=== PATIENT | female | born 1985 | race Caucasian/White ===

== ENCOUNTER 2016-05-13 11:03 | Emergency (ER) | payer MEDICAID ==
[2005-05-23 10:34] VITALS: BP 111/66
[~2016-05-13] VITALS: Ht 167.6 cm; Wt 104.5 kg
[~2016-05-13 11:03] MED LIST: ABIL400; ABIL400 IM; ABILIFY30 MG PO; ADDERALL10 MG PO; ADIPEX-P37.5 MG PO; ALDACTONE50 MG PO; AMBIEN 10MG10 MG PO; AMBIEN 5MG TABLE5 MG PO; AMITRIPTYLINE H10 M1 PO; AMOXICILLIN 50500 MG PO; ANTIVERT 12.512.5 MG PO; ANTIVERT 25MG25 MG PO; ATARAX 25MG25 MG/TAB PO; ATIVAN 1MG T1 MG/TAB PO; B-12 500 MCG SL; BELSOMRA20 MG PO; BIRTH CONTROL PILLS; BUPROPRION; BUSPAR DIVIDOSE15 MG PO; CARAFATE 1GM1 G PO; CELEXA40 MG PO; CEPHALEXIN250 M1 PO; CLEOCIN HC150 MG/CAP PO; CLEOCIN HCL300 MG PO; COLACE 100100 MG/CAP PO; CYMBALTA 60MG60 MG PO; DEPAKOTE500 MG PO; DICLEGIS PO; DILAUDID 2MG TAB2 MG PO; DITROPAN 5MG TAB5 MG PO; DOXYCYCLINE 10100 MG PO; DULERA1 AR1 IH; DULERA1 ARO IH; FELDENE20 MG PO; FLAGYL500 MG PO; FLEXERIL 1010 MG/TAB PO; FLEXERIL5 MG PO; FLONASE NASAL S16 GM NS; KLONOPIN 1MG1 MG PO; LAMICTAL 100MG100 MG PO; LASIX 20MG TABL20 MG PO; LASIX 40MG TABL40 MG PO; LATUDA120 MG PO; LATUDA40 MG PO; LEVAQUIN 5500 MG/TA1 PO; LYRICA 100MG C100 M1 PO; LYRICA225 MG PO; MACROBID 1100 MG/CAP PO; MAG-OX 400400 MG/TAB PO; MINIPRESS 1M1 MG/CAP PO; MINIPRESS 5M5 MG/CAP PO; MIRTAZAPINE7.5 MG PO; MOTRIN 600600 MG/TAB PO; MOTRIN 800800 MG/TAB PO; NAPROSYN500 MG PO; NO HOME MEDICATIONS; NORCO 325 MG-51 TAB PO; NORCO 325 MG-7.1 TAB PO; OSCAL 500 TAB500 MG PO; PENICILLIN V P500 MG PO; PEPCID 20MG TAB20 MG PO; PERCOCET 325 MG1 TA2 PO; PERIACTIN 4MG TA4 MG PO; PHENERGAN 25 TA25 MG; PHENERGAN 25 TA25 MG PO; PHENERGAN25 MG RC; PRENATAL; PRENATAL1 TA1 PO; PRIL40 PO; PRINIVIL5 MG PO; PROTONIX20 MG PO; PROZAC40 MG PO; REGLAN 5MG T5 MG/TAB PO; SEROQUEL 1100 MG/TAB PO; SEROQUEL XR200 MG PO; SEROQUEL400 MG PO; SEROQUEL50 MG PO; SINGULAIR 110 MG/TAB PO; TEGRETOL 1100 MG/TAB PO; TOPAMAX 100MG100 M1 PO; TOPAMAX50 MG PO; TOPICAINE 55% TP; TRANSDERM-0.5 MG/21 TD; TUSS PO; ULTRAM 50MG TAB50 MG PO; VENTOLIN0.09 MG IH; VIIBRYD20 MG PO; VIIBRYD40 MG PO; VITAMIN D31000 I1 PO; XANAX 0.5MG0.5 MG PO; XANAX 1MG1 MG PO; XANAX0.5 MG PO; ZITHROMAX Z PA250 MG PO; ZOFRAN 4MG T4 MG/TAB PO; ZOFRAN ODT4 MG PO; ZOFRAN4 M1 PO; ZOFRAN8 MG PO; ZOLOFT 100MG100 MG PO; ZOLOFT100 MG PO; ZOVIRAX400 MG PO; ZYPREXA 5MG5 MG PO; ZYPREXA ZYD10 MG/TAB PO
[2016-05-13 11:25] VITALS: BP 106/68; TEMP 100.2
[2016-05-13 12:14] LABS: INFLUENZA B NEGATIVE
[2016-05-13 12:43] VITALS: PULSE 88
[2016-07-11] MEDS ORDERED: B-12 500 MCG SL (09:53)
[2016-07-11] MEDS ORDERED: VITAMIN D 1001000 IU PO (09:55)
[2016-07-11] MEDS ORDERED: CALCIUM 600MG+D1 TAB PO (09:55)
== END 2016-05-13 13:03 | disposition home or self-care (01) ==
LOC: COL.ER 11:03
PROVIDERS: Physician Assistant
DX: J11.1 Influenza due to unidentified influenza virus with other respiratory manifestations (principal)

== ENCOUNTER → 2016-07-11 | Outpatient (CLI) | payer MEDICAID ==
[~2016-07-11] VITALS: Ht 167.6 cm; Wt 97.3 kg
[~2016-07-11] MED LIST changes: +CALCIUM 600MG+D1 TAB PO; +CARAFATE S1 GM/10 ML PO; +HYCET SOLN PO; +INDERAL 10MG10 MG PO; +NEXIUM 40MG40 MG PO; +PEPCID40 MG PO; +VITAMIN D 1001000 IU PO
[2016-07-11 09:56] VITALS: BP 105/54; PULSE 65
== END ==
LOC: LIGHT 05-16 10:34
DX: Z98.84 Bariatric surgery status (principal); Z68.34 Body mass index [BMI] 34.0-34.9, adult

== ENCOUNTER 2016-08-07 10:58 | Emergency (ER) | payer MEDICAID ==
[2005-05-23 10:34] VITALS: BP 111/66
[~2016-08-07] VITALS: Ht 167.6 cm; Wt 97.3 kg
[~2016-08-07 10:58] MED LIST changes: -CARAFATE S1 GM/10 ML PO; -HYCET SOLN PO; -INDERAL 10MG10 MG PO; -NEXIUM 40MG40 MG PO; -PEPCID40 MG PO
[2016-08-07 11:00] VITALS: TEMP 98.8
[2016-08-07 11:56] LABS: BASO % 0.3 % (0.0-2.0); EOS % 0.5 % (0-4.0); GRAN # 3.3 (1.4-6.5); GRAN % 51.4 % (42.2-75.2); HEMATOCRIT 38.3 % (37.0-47.0); HEMOGLOBIN 12.2 g/dl (12.5-16.0); LYMPH # 2.7 (1.2-3.4); MEAN CELL VOLUME 81 fl (80.0-100.0); MEAN CORPUSCULAR HEMOGLOBIN 26 pg (27.0-31.0); MEAN CORPUSCULAR HGB CONC 32 g/dl (33.0-37.0); MEAN PLATELET VOLUME 9.9 fl (7.4-10.4); MONO # 0.4 (0.1-0.6); MONO % 5.6 % (1.7-9.3); PLATELET COUNT 372 K/mm3 (130-400); RED BLOOD COUNT 4.76 M/mm3 (4.10-5.30); REDCELL DISTRIBUTION WIDTH-CV 16.4 % (11.5-14.5); WHITE BLOOD COUNT 6.4 K/mm3 (4.8-10.8)
[2016-08-07 11:57] LABS: ADJUSTED CALCIUM 9.3 mg/dL (8.4-10.2); ALBUMIN 4.5 gm/dL (3.5-5.0); BILIRUBIN,TOTAL 1.2 mg/dL (0.0-1.0); CALCIUM 9.7 mg/dL (8.4-10.2); CREATININE, serum 0.66 mg/dL (0.52-1.25); POTASSIUM 3.7 mmol/L (3.4-5.0)
[2016-08-07 12:24] LABS: PH 6 (5-8); SQUAMOUS EPITHELIAL 0-2 /hpf; URINE APPEARANCE Clear; URINE BACTERIA None Seen /hpf; URINE BILIRUBIN Negative (NEGATIVE); URINE BLOOD Negative (NEGATIVE); URINE COLOR Yellow; URINE GLUCOSE Negative (NEGATIVE); URINE KETONE Negative (NEGATIVE); URINE RBC 0-2 /hpf; URINE UROBILINOGEN Negative (NEGATIVE); URINE WBC 0-2 /hpf
[2016-08-07 12:40] VITALS: BP 111/77
[2016-08-07] MEDS ORDERED: HYCET SOLN PO (13:52)
[2016-08-07 14:12] VITALS: PULSE 67
== END 2016-08-07 14:13 | disposition home or self-care (01) ==
LOC: COL.ER 10:58
PROVIDERS: Nurse Practitioner
DX: R10.11 Right upper quadrant pain (principal); R10.31 Right lower quadrant pain; F31.9 Bipolar disorder, unspecified; E66.9 Obesity, unspecified; Z68.34 Body mass index [BMI] 34.0-34.9, adult; Z98.84 Bariatric surgery status
CPT/HCPCS: J2405; J3010; J7030; Q9967

== ENCOUNTER 2016-08-16 11:31 | Emergency (ER) | payer MEDICAID ==
[2005-05-23 10:34] VITALS: BP 111/66
[~2016-08-16] VITALS: Ht 167.6 cm; Wt 95.5 kg
[~2016-08-16 11:31] MED LIST changes: +HYCET SOLN PO
[2016-08-16 11:38] VITALS: BP 113/67; PULSE 71; TEMP 98
[2016-08-16 14:13] LABS: BASO % 0.3 % (0.0-2.0); EOS % 0.7 % (0-4.0); GRAN # 2.3 (1.4-6.5); GRAN % 38.4 % (42.2-75.2); LYMPH # 3.3 (1.2-3.4); LYMPH % 54.2 % (20.0-51.0); MEAN CELL VOLUME 81 fl (80.0-100.0); MEAN CORPUSCULAR HGB CONC 32 g/dl (33.0-37.0); MEAN PLATELET VOLUME 10.1 fl (7.4-10.4); MONO # 0.4 (0.1-0.6); MONO % 6.2 % (1.7-9.3); PLATELET COUNT 305 K/mm3 (130-400); RED BLOOD COUNT 4.21 M/mm3 (4.10-5.30); REDCELL DISTRIBUTION WIDTH-CV 16.9 % (11.5-14.5)
[2016-08-16 14:14] LABS: HEMATOCRIT 34.2 % (37.0-47.0); HEMOGLOBIN 10.9 g/dl (12.5-16.0); MEAN CORPUSCULAR HEMOGLOBIN 26 pg (27.0-31.0)
[2016-08-16 14:16] LABS: PH 7 (5-8); URINE APPEARANCE Clear; URINE BACTERIA None Seen /hpf; URINE BILIRUBIN Negative (NEGATIVE); URINE BLOOD Negative (NEGATIVE); URINE COLOR Yellow; URINE GLUCOSE Negative (NEGATIVE); URINE KETONE Negative (NEGATIVE); URINE RBC 0-2 /hpf; URINE UROBILINOGEN Negative (NEGATIVE); URINE WBC 0-2 /hpf
[2016-08-16 14:28] LABS: ADJUSTED CALCIUM 9.1 mg/dL (8.4-10.2); ALANINE AMINOTRANSFERASE 24 U/L (9-52); ALBUMIN 3.7 gm/dL (3.5-5.0); ALKALINE PHOSPHATASE 52 U/L (50-136); ANION GAP 10 mmol/L (7-16); BLOOD UREA NITROGEN 8 mg/dL (7-17); CALCIUM 8.9 mg/dL (8.4-10.2); CARBON DIOXIDE 27 mmol/L (22-30); CHLORIDE 103 mmol/L (98-107); CREATININE, serum 0.59 mg/dL (0.52-1.25); GLUCOSE 79 mg/dL (74-106); POTASSIUM 3.6 mmol/L (3.4-5.0); SODIUM 140 mmol/L (137-145); TOTAL PROTEIN 6.6 gm/dL (6.4-8.2)
[2016-08-16 14:33] LABS: C-REACTIVE PROTEIN < 0.5 mg/dL (0.0-0.9)
== END 2016-08-16 15:40 | disposition home or self-care (01) ==
LOC: COL.ER 11:31
PROVIDERS: Physician Assistant
DX: R53.81 Other malaise (principal); R11.2 Nausea with vomiting, unspecified; Z98.84 Bariatric surgery status; F32.9 Major depressive disorder, single episode, unspecified; F41.9 Anxiety disorder, unspecified; F43.10 Post-traumatic stress disorder, unspecified
CPT/HCPCS: J2405; J2550; J7030

== ENCOUNTER 2016-09-01 20:44 | Emergency (ER) | payer MEDICAID ==
[2005-05-23 10:34] VITALS: BP 111/66
[~2016-09-01] VITALS: Ht 167.6 cm; Wt 95.5 kg
[2016-09-01 20:54] VITALS: BP 121/69; PULSE 104; TEMP 98.4
== END 2016-09-01 23:52 | disposition home or self-care (01) ==
LOC: COL.ER 20:44
DX: R21 Rash and other nonspecific skin eruption (principal); L73.9 Follicular disorder, unspecified

== ENCOUNTER 2016-09-15 11:13 | Emergency (ER) | payer MEDICAID ==
[2005-05-23 10:34] VITALS: BP 111/66
[~2016-09-15] VITALS: Ht 167.6 cm; Wt 100.0 kg
[2016-09-15 11:55] LABS: PH 8 (5-8); SQUAMOUS EPITHELIAL 0-2 /hpf; URINE APPEARANCE Clear; URINE BACTERIA None Seen /hpf; URINE BILIRUBIN Negative (NEGATIVE); URINE BLOOD Negative (NEGATIVE); URINE COLOR Yellow; URINE GLUCOSE Negative (NEGATIVE); URINE KETONE Negative (NEGATIVE); URINE RBC 0-2 /hpf; URINE UROBILINOGEN Negative (NEGATIVE); URINE WBC 0-2 /hpf
[2016-09-15 11:55] LABS: BASO % 0.4 % (0.0-2.0); EOS % 0.6 % (0-4.0); GRAN # 2.5 (1.4-6.5); GRAN % 45.6 % (42.2-75.2); LYMPH # 2.5 (1.2-3.4); LYMPH % 46.2 % (20.0-51.0); MEAN CELL VOLUME 81 fl (80.0-100.0); MEAN CORPUSCULAR HGB CONC 32 g/dl (33.0-37.0); MEAN PLATELET VOLUME 9.7 fl (7.4-10.4); MONO # 0.4 (0.1-0.6); PLATELET COUNT 310 K/mm3 (130-400); RED BLOOD COUNT 4.35 M/mm3 (4.10-5.30); REDCELL DISTRIBUTION WIDTH-CV 16.9 % (11.5-14.5); WHITE BLOOD COUNT 5.4 K/mm3 (4.8-10.8)
[2016-09-15 11:59] LABS: HEMATOCRIT 35.2 % (37.0-47.0); HEMOGLOBIN 11.2 g/dl (12.5-16.0); MEAN CORPUSCULAR HEMOGLOBIN 26 pg (27.0-31.0)
[2016-09-15 12:09] LABS: ADJUSTED CALCIUM 8.9 mg/dL (8.4-10.2); CALCIUM 8.9 mg/dL (8.4-10.2); CREATININE, serum 0.61 mg/dL (0.52-1.25); POTASSIUM 3.6 mmol/L (3.4-5.0)
[2016-09-15] MEDS ORDERED: ULTRAM 50MG TAB50 MG PO (13:29)
[2016-09-15 13:44] VITALS: BP 114/66; PULSE 84; TEMP 98.3
== END 2016-09-15 13:45 | disposition home or self-care (01) ==
LOC: COL.ER 11:13
PROVIDERS: Family Medicine
DX: K52.9 Noninfective gastroenteritis and colitis, unspecified (principal); R10.31 Right lower quadrant pain; Z98.84 Bariatric surgery status
CPT/HCPCS: J2270; J2405; J7030; Q9967

== ENCOUNTER 2016-10-08 10:41 | Emergency (ER) | payer MEDICAID ==
[2005-05-23 10:34] VITALS: BP 111/66
[~2016-10-08] VITALS: Ht 167.6 cm; Wt 97.7 kg
[2016-10-08 10:43] VITALS: TEMP 98.8
[2016-10-08 11:18] LABS: BASO % 0.4 % (0.0-2.0); EOS % 0.6 % (0-4.0); GRAN # 2.2 (1.4-6.5); GRAN % 44.9 % (42.2-75.2); HEMATOCRIT 37.4 % (37.0-47.0); LYMPH # 2.3 (1.2-3.4); LYMPH % 46.5 % (20.0-51.0); MEAN CELL VOLUME 80 fl (80.0-100.0); MEAN CORPUSCULAR HEMOGLOBIN 26 pg (27.0-31.0); MEAN CORPUSCULAR HGB CONC 32 g/dl (33.0-37.0); MEAN PLATELET VOLUME 10.1 fl (7.4-10.4); MONO # 0.4 (0.1-0.6); MONO % 7.4 % (1.7-9.3); PLATELET COUNT 312 K/mm3 (130-400); RED BLOOD COUNT 4.66 M/mm3 (4.10-5.30); REDCELL DISTRIBUTION WIDTH-CV 16.5 % (11.5-14.5); WHITE BLOOD COUNT 4.8 K/mm3 (4.8-10.8)
[2016-10-08 11:31] LABS: PH 8 (5-8); SQUAMOUS EPITHELIAL 0-2 /hpf; URINE APPEARANCE Clear; URINE BACTERIA Rare /hpf; URINE BILIRUBIN Negative (NEGATIVE); URINE BLOOD Negative (NEGATIVE); URINE COLOR Yellow; URINE GLUCOSE Negative (NEGATIVE); URINE KETONE Negative (NEGATIVE); URINE RBC 0-2 /hpf; URINE UROBILINOGEN Negative (NEGATIVE); URINE WBC 0-2 /hpf
[2016-10-08 11:34] LABS: ADJUSTED CALCIUM 8.7 mg/dL (8.4-10.2); ALANINE AMINOTRANSFERASE 12 U/L (9-52); ALBUMIN 4.2 gm/dL (3.5-5.0); ALKALINE PHOSPHATASE 55 U/L (50-136); ANION GAP 9 mmol/L (7-16); BILIRUBIN,TOTAL 1.1 mg/dL (0.0-1.0); BLOOD UREA NITROGEN 10 mg/dL (7-17); CALCIUM 8.9 mg/dL (8.4-10.2); CARBON DIOXIDE 24 mmol/L (22-30); CHLORIDE 102 mmol/L (98-107); CREATININE, serum 0.63 mg/dL (0.52-1.25); GLUCOSE 81 mg/dL (74-106); POTASSIUM 4.2 mmol/L (3.4-5.0); SODIUM 135 mmol/L (137-145); TOTAL PROTEIN 7.4 gm/dL (6.4-8.2)
[2016-10-08 11:36] LABS: C-REACTIVE PROTEIN < 0.5 mg/dL (0.0-0.9)
[2016-10-08 12:10] VITALS: BP 117/60; PULSE 83
== END 2016-10-08 12:10 | disposition home or self-care (01) ==
LOC: COL.ER 10:41
PROVIDERS: Emergency Medicine
DX: R53.1 Weakness (principal); B34.9 Viral infection, unspecified; R11.0 Nausea; R52 Pain, unspecified; R10.84 Generalized abdominal pain; F32.9 Major depressive disorder, single episode, unspecified; Z98.84 Bariatric surgery status
CPT/HCPCS: J1885; J2405; J7030

== ENCOUNTER 2016-11-15 10:02 | Emergency (ER) | payer MEDICAID ==
[2005-05-23 10:34] VITALS: BP 111/66
[~2016-11-15] VITALS: Ht 167.6 cm; Wt 95.5 kg
[2016-11-15 10:06] VITALS: BP 123/63; TEMP 98.5
[2016-11-15 10:49] LABS: PH 5 (5-8); SQUAMOUS EPITHELIAL 0-2 /hpf; URINE APPEARANCE Clear; URINE BACTERIA Rare /hpf; URINE BILIRUBIN Negative (NEGATIVE); URINE BLOOD Negative (NEGATIVE); URINE COLOR Yellow; URINE GLUCOSE Negative (NEGATIVE); URINE KETONE Negative (NEGATIVE); URINE RBC 0-2 /hpf; URINE UROBILINOGEN Negative (NEGATIVE); URINE WBC 0-2 /hpf
[2016-11-15] MEDS ORDERED: PHENERGAN 25 TA25 MG PO (11:51)
[2016-11-15 12:31] VITALS: PULSE 76
== END 2016-11-15 12:36 | disposition home or self-care (01) ==
LOC: COL.ER 10:02
PROVIDERS: Physician Assistant
DX: R10.9 Unspecified abdominal pain (principal); F32.9 Major depressive disorder, single episode, unspecified; Z87.442 Personal history of urinary calculi
CPT/HCPCS: J1885; J2405; J7030

== ENCOUNTER 2016-11-23 12:41 | Emergency (ER) | payer MEDICAID ==
[2005-05-23 10:34] VITALS: BP 111/66
[~2016-11-23] VITALS: Ht 167.6 cm; Wt 95.5 kg
[2016-11-23 12:43] VITALS: TEMP 97.8
[2016-11-23] MEDS ORDERED: PEPCID40 MG PO (12:58)
[2016-11-23 13:15] LABS: BASO % 0.4 % (0.0-2.0); EOS % 0.5 % (0-4.0); GRAN # 2.6 (1.4-6.5); GRAN % 45.9 % (42.2-75.2); LYMPH # 2.6 (1.2-3.4); LYMPH % 45.4 % (20.0-51.0); MEAN CELL VOLUME 82 fl (80.0-100.0); MEAN CORPUSCULAR HGB CONC 32 g/dl (33.0-37.0); MEAN PLATELET VOLUME 9.6 fl (7.4-10.4); MONO # 0.4 (0.1-0.6); MONO % 7.6 % (1.7-9.3); PLATELET COUNT 314 K/mm3 (130-400); RED BLOOD COUNT 4.48 M/mm3 (4.10-5.30); REDCELL DISTRIBUTION WIDTH-CV 17.6 % (11.5-14.5); WHITE BLOOD COUNT 5.7 K/mm3 (4.8-10.8)
[2016-11-23 13:21] LABS: ADJUSTED CALCIUM 8.6 mg/dL (8.4-10.2); ALBUMIN 4.1 gm/dL (3.5-5.0); BILIRUBIN,TOTAL 0.9 mg/dL (0.0-1.0); CALCIUM 8.7 mg/dL (8.4-10.2); CREATININE, serum 0.68 mg/dL (0.52-1.25); HEMATOCRIT 36.5 % (37.0-47.0); HEMOGLOBIN 11.8 g/dl (12.5-16.0); MEAN CORPUSCULAR HEMOGLOBIN 26 pg (27.0-31.0); POTASSIUM 3.7 mmol/L (3.4-5.0); TOTAL PROTEIN 7.4 gm/dL (6.4-8.2)
[2016-11-23] MEDS ORDERED: PEPCID 20MG TAB20 MG PO (15:20)
[2016-11-23 15:38] VITALS: BP 96/65; PULSE 60
== END 2016-11-23 15:39 | disposition home or self-care (01) ==
LOC: COL.ER 12:41
PROVIDERS: Emergency Medicine
DX: K29.70 Gastritis, unspecified, without bleeding (principal); Z87.11 Personal history of peptic ulcer disease; Z98.84 Bariatric surgery status; G89.29 Other chronic pain
CPT/HCPCS: J2405; J2765; J3010; J7030

== ENCOUNTER 2016-11-27 16:43 | Emergency (ER) | payer MEDICAID ==
[2005-05-23 10:34] VITALS: BP 111/66
[~2016-11-27] VITALS: Ht 167.6 cm; Wt 97.7 kg
[~2016-11-27 16:43] MED LIST changes: +PEPCID40 MG PO
[2016-11-27 16:49] VITALS: BP 117/72; TEMP 98.1
[2016-11-27 17:52] LABS: BASO % 0.3 % (0.0-2.0); EOS % 0.3 % (0-4.0); GRAN # 2.9 (1.4-6.5); GRAN % 42.5 % (42.2-75.2); LYMPH # 3.4 (1.2-3.4); LYMPH % 50.2 % (20.0-51.0); MEAN CELL VOLUME 82 fl (80.0-100.0); MEAN CORPUSCULAR HGB CONC 32 g/dl (33.0-37.0); MONO # 0.5 (0.1-0.6); MONO % 6.6 % (1.7-9.3); PLATELET COUNT 310 K/mm3 (130-400); RED BLOOD COUNT 4.46 M/mm3 (4.10-5.30); REDCELL DISTRIBUTION WIDTH-CV 17.3 % (11.5-14.5); WHITE BLOOD COUNT 6.8 K/mm3 (4.8-10.8)
[2016-11-27 17:54] LABS: HEMATOCRIT 36.7 % (37.0-47.0); HEMOGLOBIN 11.7 g/dl (12.5-16.0); MEAN CORPUSCULAR HEMOGLOBIN 26 pg (27.0-31.0)
[2016-11-27 18:11] LABS: ADJUSTED CALCIUM 8.7 mg/dL (8.4-10.2); ALANINE AMINOTRANSFERASE 19 U/L (9-52); ALBUMIN 4.3 gm/dL (3.5-5.0); ALKALINE PHOSPHATASE 56 U/L (50-136); ANION GAP 8 mmol/L (7-16); BILIRUBIN,TOTAL 0.9 mg/dL (0.0-1.0); BLOOD UREA NITROGEN 11 mg/dL (7-17); CALCIUM 8.9 mg/dL (8.4-10.2); CARBON DIOXIDE 27 mmol/L (22-30); CHLORIDE 101 mmol/L (98-107); CREATININE, serum 0.66 mg/dL (0.52-1.25); GLUCOSE 77 mg/dL (74-106); LIPASE 99 U/L (23-300); POTASSIUM 3.6 mmol/L (3.4-5.0); SODIUM 136 mmol/L (137-145); TOTAL PROTEIN 7.5 gm/dL (6.4-8.2)
[2016-11-27 18:13] LABS: C-REACTIVE PROTEIN < 0.5 mg/dL (0.0-0.9)
[2016-11-27 18:14] LABS: PH 6 (5-8); URINE APPEARANCE Clear; URINE BACTERIA None Seen /hpf; URINE BILIRUBIN Negative (NEGATIVE); URINE BLOOD Negative (NEGATIVE); URINE COLOR Yellow; URINE GLUCOSE Negative (NEGATIVE); URINE KETONE Negative (NEGATIVE); URINE RBC 0-2 /hpf; URINE UROBILINOGEN Negative (NEGATIVE); URINE WBC 0-2 /hpf
[2016-11-27] MEDS ORDERED: NEXIUM 40MG40 MG PO (19:38)
[2016-11-27] MEDS ORDERED: PHENERGAN 25 TA25 MG PO (19:38)
[2016-11-27] MEDS ORDERED: ZOFRAN ODT4 MG PO (19:38)
[2016-11-27] MEDS ORDERED: CARAFATE S1 GM/10 ML PO (19:38)
[2016-11-27 19:49] VITALS: PULSE 84
[2016-11-28] MEDS ORDERED: PHENERGAN25 MG RC (10:23)
[2016-11-28] MEDS ORDERED: INDERAL 10MG10 MG PO (10:26)
[2016-11-28] MEDS ORDERED: NORCO 325 MG-51 TAB PO (10:27)
== END 2016-11-27 19:51 | disposition home or self-care (01) ==
LOC: COL.ER 16:43
PROVIDERS: Emergency Medicine
DX: R10.13 Epigastric pain (principal); R10.12 Left upper quadrant pain; R10.11 Right upper quadrant pain; R11.2 Nausea with vomiting, unspecified; R19.7 Diarrhea, unspecified; Z98.84 Bariatric surgery status; F41.9 Anxiety disorder, unspecified; F32.9 Major depressive disorder, single episode, unspecified; F43.10 Post-traumatic stress disorder, unspecified; Z87.11 Personal history of peptic ulcer disease; M79.7 Fibromyalgia
CPT/HCPCS: J1170; J2405; J2550; J7030

== ENCOUNTER 2016-11-28 09:43 | Day surgery (SDC) | payer MEDICAID ==
[2005-05-23 10:34] VITALS: BP 111/66
[~2016-11-28] VITALS: Ht 167.6 cm; Wt 101.1 kg
[~2016-11-28 09:43] MED LIST changes: +CARAFATE S1 GM/10 ML PO; +NEXIUM 40MG40 MG PO
[2016-11-28 10:10] VITALS: BP 111/62; PULSE 76; TEMP 98
[2016-11-28] MEDS ORDERED: PHENERGAN25 MG RC (10:23)
[2016-11-28] MEDS ORDERED: INDERAL 10MG10 MG PO (10:26)
[2016-11-28] MEDS ORDERED: NORCO 325 MG-51 TAB PO (10:27)
[2016-11-28 11:32] VITALS: BP 107/75; PULSE 65; TEMP 98.8
[2016-11-28 11:45] VITALS: BP 100/64; PULSE 74
[2016-11-28 12:00] VITALS: BP 108/53; PULSE 68
[2016-11-28 17:56] VITALS: BP 100/71; PULSE 77
== END 2016-11-28 12:40 | disposition home or self-care (01) ==
LOC: SDCO 09:43
DX: K21.0 Gastro-esophageal reflux disease with esophagitis (principal); K31.89 Other diseases of stomach and duodenum; K30 Functional dyspepsia; D64.9 Anemia, unspecified; K92.1 Melena; K25.9 Gastric ulcer, unspecified as acute or chronic, without hemorrhage or perforation; E66.9 Obesity, unspecified; Z87.11 Personal history of peptic ulcer disease
CPT/HCPCS: OP; J2250; J3010; J7030

== ENCOUNTER → 2016-12-17 | Outpatient (CLI) | payer MEDICAID ==
[~2016-12-17] MED LIST changes: +INDERAL 10MG10 MG PO
== END ==
LOC: COL.RAD 11:36
DX: R10.10 Upper abdominal pain, unspecified (principal); R19.7 Diarrhea, unspecified; Z98.84 Bariatric surgery status
CPT/HCPCS: A9537

== ENCOUNTER 2017-01-21 14:22 | Emergency (ER) | payer MEDICAID ==
[2005-05-23 10:34] VITALS: BP 111/66
[~2017-01-21] VITALS: Ht 167.6 cm; Wt 97.7 kg
[2017-01-21 14:29] VITALS: BP 107/67; TEMP 98.3
[2017-01-21 15:22] VITALS: PULSE 75
== END 2017-01-21 15:22 | disposition home or self-care (01) ==
LOC: COL.ER 14:22
DX: S01.511A Laceration without foreign body of lip, initial encounter (principal); F32.9 Major depressive disorder, single episode, unspecified; F41.9 Anxiety disorder, unspecified; Z98.890 Other specified postprocedural states; W20.8XXA Other cause of strike by thrown, projected or falling object, initial encounter; Y92.009 Unspecified place in unspecified non-institutional (private) residence as the place of occurrence of the external cause

== ENCOUNTER 2017-03-10 09:19 | Emergency (ER) | payer MEDICAID ==
[2005-05-23 10:34] VITALS: BP 111/66
[~2017-03-10] VITALS: Ht 167.6 cm; Wt 96.4 kg
[2017-03-10 09:32] VITALS: BP 121/75; TEMP 98.4
[2017-03-10] MEDS ORDERED: WELLBUTRIN XL300 M1 PO (09:35)
[2017-03-10 11:03] VITALS: PULSE 88
== END 2017-03-10 11:04 | disposition home or self-care (01) ==
LOC: COL.ER 09:19
DX: J06.9 Acute upper respiratory infection, unspecified (principal); J45.909 Unspecified asthma, uncomplicated; F32.9 Major depressive disorder, single episode, unspecified; F43.10 Post-traumatic stress disorder, unspecified

== ENCOUNTER → 2017-05-29 | Outpatient (CLI) | payer MEDICAID ==
[~2017-05-29] VITALS: Ht 167.6 cm; Wt 93.4 kg
[~2017-05-29] MED LIST changes: +B-121000 MCG PO; +MULTIPLE VITAMI1 CAP PO; +PHENTERMINE15 MG PO; +WELLBUTRIN XL300 M1 PO; +ZOFRAN ODT8 MG PO
[2017-05-29 14:59] VITALS: BP 102/60; PULSE 72
== END ==
LOC: LIGHT
DX: Z98.84 Bariatric surgery status (principal); Z68.33 Body mass index [BMI] 33.0-33.9, adult; Z71.3 Dietary counseling and surveillance
CPT/HCPCS: G0463

== ENCOUNTER 2017-06-05 18:22 | Emergency (ER) | payer MEDICAID ==
[2005-05-23 10:34] VITALS: BP 111/66
[~2017-06-05] VITALS: Ht 167.6 cm; Wt 93.6 kg
[2017-06-05 18:24] VITALS: TEMP 98.1
[2017-06-05 19:32] LABS: COLLECTION METHOD CLEAN CATCH
[2017-06-05 19:37] LABS: BASO % 0.2 % (0.0-2.0); EOS % 0.6 % (0-4.0); GRAN # 2.7 (1.4-6.5); HEMATOCRIT 37.4 % (37.0-47.0); HEMOGLOBIN 12.2 g/dl (12.5-16.0); LYMPH # 3.1 (1.2-3.4); LYMPH % 49.4 % (20.0-51.0); MEAN CELL VOLUME 86 fl (80.0-100.0); MEAN CORPUSCULAR HEMOGLOBIN 28 pg (27.0-31.0); MEAN CORPUSCULAR HGB CONC 33 g/dl (33.0-37.0); MONO # 0.4 (0.1-0.6); MONO % 6.6 % (1.7-9.3); PLATELET COUNT 297 K/mm3 (130-400); RED BLOOD COUNT 4.33 M/mm3 (4.10-5.30); REDCELL DISTRIBUTION WIDTH-CV 15.7 % (11.5-14.5)
[2017-06-05 19:47] LABS: ALANINE AMINOTRANSFERASE 23 U/L (9-52); ALKALINE PHOSPHATASE 58 U/L (50-136); ANION GAP 9 mmol/L (7-16); AST,SGOT 18 U/L (15-37); BILIRUBIN,TOTAL 0.5 mg/dL (0.0-1.0); BLOOD UREA NITROGEN 8 mg/dL (7-17); C-REACTIVE PROTEIN < 0.5 mg/dL (0.0-0.9); CALCIUM 8.7 mg/dL (8.4-10.2); CARBON DIOXIDE 25 mmol/L (22-30); CHLORIDE 105 mmol/L (98-107); GLUCOSE 85 mg/dL (74-106); LIPASE 143 U/L (23-300); POTASSIUM 3.6 mmol/L (3.4-5.0); SODIUM 138 mmol/L (137-145); TOTAL PROTEIN 7.3 gm/dL (6.4-8.2)
[2017-06-05 20:01] LABS: MUCOUS Present /lpf; PH 7 (5-8); SQUAMOUS EPITHELIAL 0-2 /hpf; URINE APPEARANCE Hazy; URINE BACTERIA Rare /hpf; URINE BILIRUBIN Negative (NEGATIVE); URINE BLOOD Negative (NEGATIVE); URINE COLOR Yellow; URINE GLUCOSE Negative (NEGATIVE); URINE KETONE Negative (NEGATIVE); URINE LEUKOCYTE ESTERASE Negative (NEGATIVE); URINE NITRATE Negative (NEGATIVE); URINE PROTEIN(semi-quant) Negative (NEGATIVE); URINE RBC 0-2 /hpf; URINE UROBILINOGEN >=4.0 mg/dL (NEGATIVE)
[2017-06-05 22:08] VITALS: BP 128/83; PULSE 86
== END 2017-06-05 22:08 | disposition home or self-care (01) ==
LOC: COL.ER 18:22
PROVIDERS: Emergency Medicine
DX: R10.31 Right lower quadrant pain (principal); Z87.442 Personal history of urinary calculi; Z98.890 Other specified postprocedural states
CPT/HCPCS: J1170; J2405; J7030; Q9967

== ENCOUNTER 2017-06-19 10:40 | Emergency (ER) | payer MEDICAID ==
[2005-05-23 10:34] VITALS: BP 111/66
[~2017-06-19] VITALS: Ht 167.6 cm; Wt 93.6 kg
[2017-06-19 10:43] VITALS: BP 115/64; TEMP 98.1
[2017-06-19 11:41] LABS: BASO % 0.4 % (0.0-2.0); EOS % 0.6 % (0-4.0); GRAN # 2.1 (1.4-6.5); GRAN % 40.3 % (42.2-75.2); LYMPH # 2.6 (1.2-3.4); LYMPH % 50.6 % (20.0-51.0); MEAN CELL VOLUME 86 fl (80.0-100.0); MEAN CORPUSCULAR HGB CONC 33 g/dl (33.0-37.0); MEAN PLATELET VOLUME 10.1 fl (7.4-10.4); MONO # 0.4 (0.1-0.6); MONO % 7.9 % (1.7-9.3); PLATELET COUNT 276 K/mm3 (130-400); RED BLOOD COUNT 4.17 M/mm3 (4.10-5.30); REDCELL DISTRIBUTION WIDTH-CV 15.2 % (11.5-14.5)
[2017-06-19 11:43] LABS: HEMOGLOBIN 11.7 g/dl (12.5-16.0); MEAN CORPUSCULAR HEMOGLOBIN 28 pg (27.0-31.0)
[2017-06-19 11:46] LABS: CALCIUM 8.9 mg/dL (8.4-10.2); CREATININE, serum 0.68 mg/dL (0.52-1.25); POTASSIUM 4.2 mmol/L (3.4-5.0)
[2017-06-19] MEDS ORDERED: ANTIVERT 25MG25 MG PO (12:07)
[2017-06-19] MEDS ORDERED: ZOFRAN ODT4 MG PO (13:09)
[2017-06-19 13:27] VITALS: PULSE 91
== END 2017-06-19 13:27 | disposition home or self-care (01) ==
LOC: COL.ER 10:40
PROVIDERS: Physician Assistant
DX: R42 Dizziness and giddiness (principal)

== ENCOUNTER 2017-06-21 12:17 | Emergency (ER) | payer MEDICAID ==
[2005-05-23 10:34] VITALS: BP 111/66
[~2017-06-21] VITALS: Ht 167.6 cm; Wt 93.6 kg
[2017-06-21 12:18] VITALS: TEMP 98.1
[2017-06-21 13:30] VITALS: BP 122/72; PULSE 80
== END 2017-06-21 13:30 | disposition home or self-care (01) ==
LOC: COL.ER 12:17
DX: R42 Dizziness and giddiness (principal); F32.9 Major depressive disorder, single episode, unspecified; Z98.51 Tubal ligation status; Z98.890 Other specified postprocedural states

== ENCOUNTER 2017-07-24 00:26 | Emergency (ER) | payer MEDICAID ==
[2005-05-23 10:34] VITALS: BP 111/66
[~2017-07-24] VITALS: Ht 167.6 cm; Wt 90.9 kg
[2017-07-24 00:29] VITALS: TEMP 98.2
[2017-07-24 01:00] LABS: BASO % 0.3 % (0.0-2.0); EOS % 0.4 % (0-4.0); GRAN # 4.4 (1.4-6.5); GRAN % 48.2 % (42.2-75.2); HEMATOCRIT 37.9 % (37.0-47.0); HEMOGLOBIN 12.1 g/dl (12.5-16.0); LYMPH % 43.9 % (20.0-51.0); MEAN CELL VOLUME 86 fl (80.0-100.0); MEAN CORPUSCULAR HEMOGLOBIN 27 pg (27.0-31.0); MEAN CORPUSCULAR HGB CONC 32 g/dl (33.0-37.0); MEAN PLATELET VOLUME 10.5 fl (7.4-10.4); MONO # 0.6 (0.1-0.6); PLATELET COUNT 309 K/mm3 (130-400); RED BLOOD COUNT 4.41 M/mm3 (4.10-5.30); REDCELL DISTRIBUTION WIDTH-CV 14.3 % (11.5-14.5)
[2017-07-24 01:09] LABS: ALANINE AMINOTRANSFERASE 26 U/L (9-52); ALBUMIN 4.2 gm/dL (3.5-5.0); ALKALINE PHOSPHATASE 59 U/L (50-136); ANION GAP 10 mmol/L (7-16); AST,SGOT 22 U/L (15-37); BILIRUBIN,TOTAL 0.5 mg/dL (0.0-1.0); BLOOD UREA NITROGEN 12 mg/dL (7-17); CALCIUM 9.1 mg/dL (8.4-10.2); CARBON DIOXIDE 26 mmol/L (22-30); CHLORIDE 102 mmol/L (98-107); CREATININE, serum 0.78 mg/dL (0.52-1.25); GLUCOSE 92 mg/dL (74-106); LIPASE 167 U/L (23-300); POTASSIUM 3.7 mmol/L (3.4-5.0); SODIUM 138 mmol/L (137-145)
[2017-07-24 01:15] LABS: COLLECTION METHOD CLEAN CATCH
[2017-07-24 01:19] LABS: C-REACTIVE PROTEIN < 0.5 mg/dL (0.0-0.9)
[2017-07-24 01:21] LABS: MUCOUS Present /lpf; PH 6 (5-8); SQUAMOUS EPITHELIAL 0-2 /hpf; URINE APPEARANCE Clear; URINE BACTERIA Rare /hpf; URINE BILIRUBIN Negative (NEGATIVE); URINE BLOOD Negative (NEGATIVE); URINE COLOR Yellow; URINE GLUCOSE Negative (NEGATIVE); URINE KETONE Negative (NEGATIVE); URINE LEUKOCYTE ESTERASE 2+ (NEGATIVE); URINE NITRATE Negative (NEGATIVE); URINE PROTEIN(semi-quant) Negative (NEGATIVE); URINE RBC 0-2 /hpf; URINE UROBILINOGEN >=4.0 mg/dL (NEGATIVE)
[2017-07-24] MEDS ORDERED: BENTYL 20MG20 MG/TAB PO (01:21)
[2017-07-24] MEDS ORDERED: INDERAL 20MG20 MG PO (01:21)
[2017-07-24] MEDS ORDERED: PHENERGAN 25 TA25 MG PO ×2 (01:22→02:49)
[2017-07-24] MEDS ORDERED: CEFTIN500 MG PO (02:49)
[2017-07-24 03:17] VITALS: BP 107/68; PULSE 81
== END 2017-07-24 03:25 | disposition home or self-care (01) ==
LOC: COL.ER 00:26
PROVIDERS: Emergency Medicine
DX: N39.0 Urinary tract infection, site not specified (principal); Z87.442 Personal history of urinary calculi; Z98.84 Bariatric surgery status; Z87.11 Personal history of peptic ulcer disease
CPT/HCPCS: J0696; J1170; J2405; J2550; J7030; Q9967

== ENCOUNTER 2017-08-19 11:22 | Emergency (ER) | payer MEDICAID ==
[2005-05-23 10:34] VITALS: BP 111/66
[~2017-08-19] VITALS: Ht 167.6 cm; Wt 95.5 kg
[~2017-08-19 11:22] MED LIST changes: +BENTYL 20MG20 MG/TAB PO; +CEFTIN500 MG PO; +INDERAL 20MG20 MG PO
[2017-08-19 11:34] VITALS: BP 114/60; TEMP 97.8
[2017-08-19] MEDS ORDERED: KLONOPIN 0.5MG0.5 MG PO (12:50)
[2017-08-19 13:53] LABS: BASO % 0.2 % (0.0-2.0); EOS # 0.1 (0.0-0.7); EOS % 0.7 % (0-4.0); GRAN # 3.8 (1.4-6.5); GRAN % 46.8 % (42.2-75.2); HEMOGLOBIN 12.5 g/dl (12.5-16.0); LYMPH # 3.7 (1.2-3.4); LYMPH % 45.7 % (20.0-51.0); MEAN CELL VOLUME 84 fl (80.0-100.0); MEAN CORPUSCULAR HEMOGLOBIN 28 pg (27.0-31.0); MEAN CORPUSCULAR HGB CONC 33 g/dl (33.0-37.0); MEAN PLATELET VOLUME 10.7 fl (7.4-10.4); MONO # 0.5 (0.1-0.6); MONO % 6.5 % (1.7-9.3); PLATELET COUNT 258 K/mm3 (130-400); RED BLOOD COUNT 4.51 M/mm3 (4.10-5.30); REDCELL DISTRIBUTION WIDTH-CV 14.6 % (11.5-14.5)
[2017-08-19 14:06] LABS: ALANINE AMINOTRANSFERASE 22 U/L (9-52); ALBUMIN 3.6 gm/dL (3.5-5.0); ALKALINE PHOSPHATASE 61 U/L (50-136); ANION GAP 10 mmol/L (7-16); AST,SGOT 19 U/L (15-37); BILIRUBIN,TOTAL 0.6 mg/dL (0.0-1.0); BLOOD UREA NITROGEN 9 mg/dL (7-17); CALCIUM 8.7 mg/dL (8.4-10.2); CARBON DIOXIDE 26 mmol/L (22-30); CHLORIDE 102 mmol/L (98-107); CREATININE, serum 0.63 mg/dL (0.52-1.25); GLUCOSE 76 mg/dL (74-106); POTASSIUM 3.8 mmol/L (3.4-5.0); SODIUM 138 mmol/L (137-145); TOTAL PROTEIN 7.3 gm/dL (6.4-8.2)
[2017-08-19 14:09] LABS: C-REACTIVE PROTEIN < 0.5 mg/dL (0.0-0.9)
[2017-08-19] MEDS ORDERED: ZOFRAN ODT4 MG PO (14:31)
[2017-08-19 14:35] VITALS: PULSE 80
== END 2017-08-19 14:36 | disposition other institution (70) ==
LOC: COL.ER 11:22
PROVIDERS: Physician Assistant
DX: R11.10 Vomiting, unspecified (principal); R10.9 Unspecified abdominal pain; J45.909 Unspecified asthma, uncomplicated; Z87.11 Personal history of peptic ulcer disease; Z88.1 Allergy status to other antibiotic agents; Z98.84 Bariatric surgery status

== ENCOUNTER 2017-08-28 10:39 | Emergency (ER) | payer MEDICAID ==
[2005-05-23 10:34] VITALS: BP 111/66
[~2017-08-28] VITALS: Ht 167.6 cm; Wt 95.5 kg
[~2017-08-28 10:39] MED LIST changes: +KLONOPIN 0.5MG0.5 MG PO
[2017-08-28 10:44] VITALS: BP 101/60; TEMP 97.3
[2017-08-28 12:00] VITALS: PULSE 70
== END 2017-08-28 12:01 | disposition home or self-care (01) ==
LOC: COL.ER 10:39
DX: Z77.098 Contact with and (suspected) exposure to other hazardous, chiefly nonmedicinal, chemicals (principal)

== ENCOUNTER 2017-10-08 01:02 | Emergency (ER) | payer MEDICAID ==
[2005-05-23 10:34] VITALS: BP 111/66
[~2017-10-08] VITALS: Ht 167.6 cm; Wt 93.2 kg
[2017-10-08 01:09] VITALS: BP 132/70; TEMP 99
[2017-10-08] MEDS ORDERED: SERZONE 10100 MG/TAB PO (01:13)
[2017-10-08 02:25] LABS: COLLECTION METHOD CLEAN CATCH
[2017-10-08 02:33] LABS: MUCOUS Present /lpf; PH 7 (5-8); URINE APPEARANCE Hazy; URINE BACTERIA None Seen /hpf; URINE BILIRUBIN Negative (NEGATIVE); URINE BLOOD Negative (NEGATIVE); URINE COLOR Yellow; URINE GLUCOSE Negative (NEGATIVE); URINE KETONE Negative (NEGATIVE); URINE LEUKOCYTE ESTERASE Negative (NEGATIVE); URINE NITRATE Negative (NEGATIVE); URINE PROTEIN(semi-quant) Negative (NEGATIVE); URINE RBC None Seen /hpf; URINE UROBILINOGEN >=4.0 mg/dL (NEGATIVE)
[2017-10-08 02:36] LABS: BASO % 0.3 % (0.0-2.0); EOS % 0.6 % (0-4.0); GRAN # 3.3 (1.4-6.5); GRAN % 45.9 % (42.2-75.2); HEMOGLOBIN 11.5 g/dl (12.5-16.0); LYMPH # 3.2 (1.2-3.4); LYMPH % 44.9 % (20.0-51.0); MEAN CELL VOLUME 85 fl (80.0-100.0); MEAN CORPUSCULAR HEMOGLOBIN 28 pg (27.0-31.0); MEAN CORPUSCULAR HGB CONC 33 g/dl (33.0-37.0); MEAN PLATELET VOLUME 9.8 fl (7.4-10.4); MONO # 0.6 (0.1-0.6); MONO % 8.2 % (1.7-9.3); PLATELET COUNT 219 K/mm3 (130-400); RED BLOOD COUNT 4.12 M/mm3 (4.10-5.30); REDCELL DISTRIBUTION WIDTH-CV 15.8 % (11.5-14.5)
[2017-10-08 02:41] LABS: HEMATOCRIT 34.9 % (37.0-47.0)
[2017-10-08 02:51] LABS: ALANINE AMINOTRANSFERASE 26 U/L (9-52); ALBUMIN 3.4 gm/dL (3.5-5.0); ALKALINE PHOSPHATASE 52 U/L (50-136); ANION GAP 9 mmol/L (7-16); AST,SGOT 18 U/L (15-37); BILIRUBIN,TOTAL 0.6 mg/dL (0.0-1.0); BLOOD UREA NITROGEN 11 mg/dL (7-17); C-REACTIVE PROTEIN < 0.5 mg/dL (0.0-0.9); CALCIUM 8.3 mg/dL (8.4-10.2); CARBON DIOXIDE 26 mmol/L (22-30); CHLORIDE 104 mmol/L (98-107); CREATININE, serum 0.61 mg/dL (0.52-1.25); GLUCOSE 88 mg/dL (74-106); LIPASE 145 U/L (23-300); POTASSIUM 3.6 mmol/L (3.4-5.0); SODIUM 139 mmol/L (137-145); TOTAL PROTEIN 6.7 gm/dL (6.4-8.2)
[2017-10-08] MEDS ORDERED: ZOFRAN 4MG T4 MG/TAB PO (03:04)
[2017-10-08 03:31] VITALS: PULSE 85
== END 2017-10-08 03:30 | disposition home or self-care (01) ==
LOC: COL.ER 01:02
PROVIDERS: Emergency Medicine
DX: R19.7 Diarrhea, unspecified (principal); R11.2 Nausea with vomiting, unspecified; Z98.51 Tubal ligation status
CPT/HCPCS: J2405; J7030

== ENCOUNTER 2017-11-05 11:24 | Emergency (ER) | payer MEDICAID ==
[2005-05-23 10:34] VITALS: BP 111/66
[~2017-11-05] VITALS: Ht 167.6 cm; Wt 93.2 kg
[~2017-11-05 11:24] MED LIST changes: +SERZONE 10100 MG/TAB PO
[2017-11-05 11:27] VITALS: TEMP 98.9
[2017-11-05] MEDS ORDERED: PRILOSEC 20MG20 MG PO (11:51)
[2017-11-05] MEDS ORDERED: CARAFATE 1GM1 G PO (11:52)
[2017-11-05 12:18] LABS: BASO % 0.3 % (0.0-2.0); EOS # 0.1 (0.0-0.7); EOS % 0.8 % (0-4.0); GRAN # 2.4 (1.4-6.5); GRAN % 40.2 % (42.2-75.2); HEMATOCRIT 40.2 % (37.0-47.0); HEMOGLOBIN 13.4 g/dl (12.5-16.0); LYMPH # 3.1 (1.2-3.4); LYMPH % 51.5 % (20.0-51.0); MEAN CELL VOLUME 85 fl (80.0-100.0); MEAN CORPUSCULAR HEMOGLOBIN 28 pg (27.0-31.0); MEAN CORPUSCULAR HGB CONC 33 g/dl (33.0-37.0); MEAN PLATELET VOLUME 10.8 fl (7.4-10.4); MONO # 0.4 (0.1-0.6); PLATELET COUNT 284 K/mm3 (130-400); RED BLOOD COUNT 4.76 M/mm3 (4.10-5.30); REDCELL DISTRIBUTION WIDTH-CV 15.6 % (11.5-14.5)
[2017-11-05 12:30] LABS: ALBUMIN 4.1 gm/dL (3.5-5.0); BILIRUBIN,TOTAL 0.9 mg/dL (0.0-1.0); CALCIUM 9.3 mg/dL (8.4-10.2); CREATININE, serum 0.6 mg/dL (0.52-1.25); POTASSIUM 3.9 mmol/L (3.4-5.0); TOTAL PROTEIN 7.5 gm/dL (6.4-8.2)
[2017-11-05 12:37] LABS: COLLECTION METHOD CLEAN CATCH
[2017-11-05 12:43] LABS: PH 8 (5-8); SQUAMOUS EPITHELIAL 0-2 /hpf; URINE APPEARANCE Clear; URINE BACTERIA None Seen /hpf; URINE BILIRUBIN Negative (NEGATIVE); URINE BLOOD Negative (NEGATIVE); URINE COLOR Yellow; URINE GLUCOSE Negative (NEGATIVE); URINE KETONE Negative (NEGATIVE); URINE LEUKOCYTE ESTERASE Negative (NEGATIVE); URINE NITRATE Negative (NEGATIVE); URINE PROTEIN(semi-quant) Negative (NEGATIVE); URINE RBC 0-2 /hpf; URINE UROBILINOGEN Negative (NEGATIVE)
[2017-11-05 13:48] VITALS: BP 104/63; PULSE 63
== END 2017-11-05 13:49 | disposition home or self-care (01) ==
LOC: COL.ER 11:24
PROVIDERS: Nurse Practitioner Primary Care
DX: R11.2 Nausea with vomiting, unspecified (principal); Z87.442 Personal history of urinary calculi; Z98.890 Other specified postprocedural states
CPT/HCPCS: J1885; J2405; J7030

== ENCOUNTER 2017-11-07 11:37 | Day surgery (SDC) | payer MEDICAID ==
[2005-05-23 10:34] VITALS: BP 111/66
[2017-11-07] VITALS (9 sets, daily range): BP systolic 101–141; BP diastolic 54–71; PULSE 83–102; TEMP 97.7–98.7
[~2017-11-07] VITALS: Ht 167.6 cm; Wt 93.0 kg
[~2017-11-07 11:37] MED LIST changes: +PRILOSEC 20MG20 MG PO
[2017-11-07] MEDS ORDERED: MOTRIN 600600 MG/TAB PO (16:46)
[2017-11-07] MEDS ORDERED: COLACE 100100 MG/CAP PO (16:46)
[2017-11-07] MEDS ORDERED: PERCOCET 325 MG1 TA2 PO (16:46)
== END 2017-11-07 21:35 | disposition home or self-care (01) ==
LOC: SDCO 11:37 → MEDICAL 17:53 → SDCO 21:35
DX: K80.10 Calculus of gallbladder with chronic cholecystitis without obstruction (principal); J45.909 Unspecified asthma, uncomplicated; F41.9 Anxiety disorder, unspecified; F32.9 Major depressive disorder, single episode, unspecified; K21.9 Gastro-esophageal reflux disease without esophagitis; R51 Headache; Z79.899 Other long term (current) drug therapy
CPT/HCPCS: OP; J1170; J2405; J2704; J3010; J7120; Q9967

== ENCOUNTER 2017-11-09 09:00 | Emergency (ER) | payer MEDICAID ==
[2005-05-23 10:34] VITALS: BP 111/66
[~2017-11-09] VITALS: Ht 167.6 cm; Wt 94.5 kg
[2017-11-09 09:05] VITALS: TEMP 98.8
[2017-11-09 09:39] LABS: BASO % 0.3 % (0.0-2.0); EOS % 0.6 % (0-4.0); GRAN # 2.5 (1.4-6.5); GRAN % 35.7 % (42.2-75.2); HEMOGLOBIN 10.9 g/dl (12.5-16.0); LYMPH % 57.7 % (20.0-51.0); MEAN CELL VOLUME 86 fl (80.0-100.0); MEAN CORPUSCULAR HEMOGLOBIN 28 pg (27.0-31.0); MEAN CORPUSCULAR HGB CONC 33 g/dl (33.0-37.0); MEAN PLATELET VOLUME 10.3 fl (7.4-10.4); MONO # 0.4 (0.1-0.6); MONO % 5.7 % (1.7-9.3); PLATELET COUNT 251 K/mm3 (130-400); RED BLOOD COUNT 3.86 M/mm3 (4.10-5.30); REDCELL DISTRIBUTION WIDTH-CV 15.5 % (11.5-14.5)
[2017-11-09 09:40] LABS: HEMATOCRIT 33.1 % (37.0-47.0)
[2017-11-09 09:52] LABS: ALBUMIN 3.5 gm/dL (3.5-5.0); BILIRUBIN,TOTAL 0.8 mg/dL (0.0-1.0); C-REACTIVE PROTEIN 0.9 mg/dL (0.0-0.9); CALCIUM 8.6 mg/dL (8.4-10.2); CREATININE, serum 0.66 mg/dL (0.52-1.25); POTASSIUM 3.7 mmol/L (3.4-5.0); TOTAL PROTEIN 6.3 gm/dL (6.4-8.2)
[2017-11-09] MEDS ORDERED: NORCO 325 MG-51 TAB PO (10:50)
[2017-11-09 11:51] VITALS: BP 106/72; PULSE 79
[2017-11-09] MEDS ORDERED: KLONOPIN 0.5MG0.5 MG PO (19:14)
[2017-11-09] MEDS ORDERED: INDERAL 20MG20 MG PO (19:15)
== END 2017-11-09 12:10 | disposition home or self-care (01) ==
LOC: COL.ER 09:00
PROVIDERS: Emergency Medicine
DX: G89.18 Other acute postprocedural pain (principal); R10.11 Right upper quadrant pain; J45.909 Unspecified asthma, uncomplicated; F32.9 Major depressive disorder, single episode, unspecified; F41.9 Anxiety disorder, unspecified; F60.3 Borderline personality disorder; Z98.890 Other specified postprocedural states; Z90.49 Acquired absence of other specified parts of digestive tract
CPT/HCPCS: J1170; J1200; J2405; J3010; J7030; Q9967

== ENCOUNTER 2017-11-09 18:07 | Observation (INO) | payer MEDICAID ==
[~2017-11-09] VITALS: Ht 167.6 cm; Wt 98.4 kg
[2017-11-09] MEDS ORDERED: KLONOPIN 0.5MG0.5 MG PO (19:14)
[2017-11-09] MEDS ORDERED: INDERAL 20MG20 MG PO (19:15)
[2017-11-09 19:20] LABS: INR 0.9 (0.8-3.0); PROTHROMBIN TIME 10.5 SECONDS (9.7-12.8)
[2017-11-09 22:53] VITALS: BP 105/71; PULSE 58; TEMP 97.8
[2017-11-10 04:00] VITALS: BP 110/74; PULSE 64; TEMP 97.7
[2017-11-10 08:19] VITALS: BP 109/64; PULSE 66; TEMP 97.7
[2017-11-10 11:35] VITALS: BP 114/78; PULSE 63; TEMP 98
[2017-11-10 17:18] VITALS: BP 109/61; PULSE 51; TEMP 98
[2017-11-10 19:41] VITALS: BP 105/63; PULSE 76; TEMP 98.9
[2017-11-10 23:25] VITALS: BP 113/59; PULSE 67; TEMP 98.8
[2017-11-11 03:45] VITALS: BP 100/72; PULSE 69; TEMP 98.9
[2017-11-11 08:02] VITALS: BP 116/66; PULSE 70; TEMP 98.3
[2017-11-11] MEDS ORDERED: NORCO 325 MG-7.1 TAB PO (10:02)
[2017-11-11] MEDS ORDERED: NEURONTIN100 MG/CAP PO (10:02)
[2017-11-11] MEDS ORDERED: ZOFRAN ODT4 MG PO (10:03)
[2017-11-11] MEDS ORDERED: ZANTAC 150MG T150 MG PO (10:58)
[2017-11-11 11:46] VITALS: BP 127/64; PULSE 99; TEMP 97.9
== END 2017-11-11 16:07 | disposition home or self-care (01) ==
LOC: COL.ER 18:07 → SURG 18:46
PROVIDERS: Emergency Medicine
DX: R10.9 Unspecified abdominal pain (principal); R11.2 Nausea with vomiting, unspecified; Z90.49 Acquired absence of other specified parts of digestive tract; Z98.84 Bariatric surgery status
CPT/HCPCS: G0378; J1170; J1650; J2405; J7030; Q9967

== ENCOUNTER → 2017-11-24 | Outpatient (CLI) | payer MEDICAID ==
[~2017-11-24] MED LIST changes: +NEURONTIN100 MG/CAP PO; +ZANTAC 150MG T150 MG PO
== END ==
LOC: COL.RAD 13:37
DX: R07.1 Chest pain on breathing (principal)

== ENCOUNTER 2017-12-06 16:04 | Emergency (ER) | payer MEDICAID ==
[~2017-12-06] VITALS: Ht 167.6 cm; Wt 91.8 kg
[2017-12-06 16:17] VITALS: TEMP 99.2
[2017-12-06 17:19] LABS: BASO % 0.3 % (0.0-2.0); EOS # 0.1 (0.0-0.7); EOS % 0.8 % (0-4.0); GRAN # 2.7 (1.4-6.5); LYMPH % 48.2 % (20.0-51.0); MEAN CELL VOLUME 87 fl (80.0-100.0); MEAN CORPUSCULAR HEMOGLOBIN 29 pg (27.0-31.0); MEAN CORPUSCULAR HGB CONC 33 g/dl (33.0-37.0); MEAN PLATELET VOLUME 10.2 fl (7.4-10.4); MONO # 0.5 (0.1-0.6); MONO % 7.5 % (1.7-9.3); PLATELET COUNT 267 K/mm3 (130-400); RED BLOOD COUNT 4.21 M/mm3 (4.10-5.30); REDCELL DISTRIBUTION WIDTH-CV 14.9 % (11.5-14.5)
[2017-12-06 17:20] LABS: HEMATOCRIT 36.4 % (37.0-47.0)
[2017-12-06 17:25] LABS: ALBUMIN 3.9 gm/dL (3.5-5.0); BILIRUBIN,TOTAL 0.6 mg/dL (0.0-1.0); CALCIUM 8.4 mg/dL (8.4-10.2); CREATININE, serum 0.6 mg/dL (0.52-1.25); POTASSIUM 3.7 mmol/L (3.4-5.0); TOTAL PROTEIN 7.1 gm/dL (6.4-8.2)
[2017-12-06 17:27] LABS: TRICYCLIC ANTIDEPRESS URINE NEGATIVE
[2017-12-06 17:55] LABS: TSH w REFLEX 0.206 uIU/mL (0.465-4.680)
[2017-12-06] MEDS ORDERED: INDERAL 10MG10 MG PO (18:20)
[2017-12-06] MEDS ORDERED: TENORMIN 2525 MG/TAB PO (18:55)
[2017-12-06 19:03] VITALS: BP 122/78; PULSE 80
== END 2017-12-06 19:03 | disposition home or self-care (01) ==
LOC: COL.ER 16:04
PROVIDERS: Nurse Practitioner Primary Care
DX: E03.9 Hypothyroidism, unspecified (principal); F32.9 Major depressive disorder, single episode, unspecified; F41.9 Anxiety disorder, unspecified; J45.909 Unspecified asthma, uncomplicated; F12.10 Cannabis abuse, uncomplicated; Z86.79 Personal history of other diseases of the circulatory system

== ENCOUNTER → 2017-12-10 | Outpatient (CLI) | payer MEDICAID ==
[~2017-12-10] MED LIST changes: +TENORMIN 2525 MG/TAB PO
[2017-12-10 17:06] LABS: TSH w REFLEX 0.563 uIU/mL (0.465-4.680)
== END ==
LOC: COL.LAB 11:09
PROVIDERS: Family Medicine
DX: R94.6 Abnormal results of thyroid function studies (principal)

== ENCOUNTER → 2017-12-11 | Outpatient (CLI) | payer MEDICAID ==
[2017-12-11 12:07] LABS: HEMATOCRIT 38.8 % (37.0-47.0); HEMOGLOBIN 12.7 g/dl (12.5-16.0); MEAN CELL VOLUME 86 fl (80.0-100.0); MEAN CORPUSCULAR HEMOGLOBIN 28 pg (27.0-31.0); MEAN CORPUSCULAR HGB CONC 33 g/dl (33.0-37.0); MEAN PLATELET VOLUME 10.3 fl (7.4-10.4); PLATELET COUNT 286 K/mm3 (130-400); RED BLOOD COUNT 4.52 M/mm3 (4.10-5.30); REDCELL DISTRIBUTION WIDTH-CV 14.8 % (11.5-14.5)
[2017-12-11 12:20] LABS: ALANINE AMINOTRANSFERASE 25 U/L (9-52); ALBUMIN 3.9 gm/dL (3.5-5.0); ALKALINE PHOSPHATASE 56 U/L (50-136); AMYLASE 74 U/L (30-110); ANION GAP 10 mmol/L (7-16); AST,SGOT 20 U/L (15-37); BILIRUBIN,TOTAL 0.9 mg/dL (0.0-1.0); BLOOD UREA NITROGEN 11 mg/dL (7-17); CALCIUM 8.9 mg/dL (8.4-10.2); CARBON DIOXIDE 27 mmol/L (22-30); CHLORIDE 102 mmol/L (98-107); GLUCOSE 78 mg/dL (74-106); LIPASE 98 U/L (23-300); POTASSIUM 3.6 mmol/L (3.4-5.0); SODIUM 138 mmol/L (137-145); TOTAL PROTEIN 7.3 gm/dL (6.4-8.2)
[2017-12-11 12:24] LABS: C-REACTIVE PROTEIN 0.5 mg/dL (0.0-0.9)
[2017-12-11 13:15] LABS: AMMONIA < 9 umol/L (11-35)
[2017-12-11 16:50] LABS: TRICYCLIC ANTIDEPRESS URINE NEGATIVE
== END ==
LOC: COL.LAB 11:10
PROVIDERS: Family Medicine
DX: F44.89 Other dissociative and conversion disorders (principal); R10.9 Unspecified abdominal pain

== ENCOUNTER → 2017-12-11 | Outpatient (CLI) | payer MEDICAID | LOC: COL.LAB 10:55 | DX: Z02.83 Encounter for blood-alcohol and blood-drug test (principal); R41.82 Altered mental status, unspecified ==

== ENCOUNTER → 2018-01-27 | Outpatient (CLI) | payer MEDICAID ==
[~2018-01-27] MED LIST changes: +MELATONIN5 M1 SL; +TYLENOL 500MG500 MG PO; +WELLBUTRIN XL150 MG PO
[2018-01-27 13:15] LABS: HEMATOCRIT 41.4 % (37.0-47.0); HEMOGLOBIN 13.7 g/dl (12.5-16.0); MEAN CELL VOLUME 85 fl (80.0-100.0); MEAN CORPUSCULAR HEMOGLOBIN 28 pg (27.0-31.0); MEAN CORPUSCULAR HGB CONC 33 g/dl (33.0-37.0); MEAN PLATELET VOLUME 10.7 fl (7.4-10.4); PLATELET COUNT 249 K/mm3 (130-400); RED BLOOD COUNT 4.87 M/mm3 (4.10-5.30); REDCELL DISTRIBUTION WIDTH-CV 14.2 % (11.5-14.5)
[2018-01-27 13:23] LABS: ALBUMIN 4.1 gm/dL (3.5-5.0); BILIRUBIN,TOTAL 0.6 mg/dL (0.0-1.0); CALCIUM 9.1 mg/dL (8.4-10.2); CREATININE, serum 0.67 mg/dL (0.52-1.25); MAGNESIUM 1.5 mg/dL (1.6-2.3); PHOSPHOROUS 3.6 mg/dL (2.5-4.5); POTASSIUM 4.1 mmol/L (3.4-5.0); TOTAL PROTEIN 7.7 gm/dL (6.4-8.2)
[2018-01-27 13:54] LABS: THYROID STIMULATING HORMONE 0.747 uIU/mL (0.465-4.680)
[2018-01-27 14:19] LABS: BAND 7 % (0-10); EOSINOPHIL 1 % (0-4); LYMPHOCYTE 54 % (20.0-51.0); NEUTROPHILS 33 % (42.0-75.2)
[2018-01-27 14:20] LABS: ANISOCYTOSIS 1+; PLATELET ESTIMATE NORMAL (NORMAL)
== END ==
LOC: COL.LAB 12:36
DX: D50.0 Iron deficiency anemia secondary to blood loss (chronic) (principal); K59.00 Constipation, unspecified; R19.7 Diarrhea, unspecified

== ENCOUNTER → 2018-01-28 | Day surgery (SDC) | payer MEDICAID ==
[2005-05-23 10:34] VITALS: BP 111/66
[~2018-01-28] VITALS: Ht 167.6 cm; Wt 92.1 kg
[2018-01-28 12:40] VITALS: BP 99/73; PULSE 66; TEMP 98.5
[2018-01-28 13:50] VITALS: BP 96/55; PULSE 68
[2018-01-28 14:05] VITALS: BP 108/74; PULSE 70
[2018-01-28 14:20] VITALS: BP 96/55; PULSE 64
[2018-01-28 15:02] VITALS: BP 101/60; PULSE 71
== END ==
LOC: SDCO 11:38
DX: K21.0 Gastro-esophageal reflux disease with esophagitis (principal); Z98.84 Bariatric surgery status; Z87.19 Personal history of other diseases of the digestive system; K59.00 Constipation, unspecified; R10.9 Unspecified abdominal pain; R19.7 Diarrhea, unspecified; D50.0 Iron deficiency anemia secondary to blood loss (chronic); R11.2 Nausea with vomiting, unspecified; Z79.899 Other long term (current) drug therapy; J45.909 Unspecified asthma, uncomplicated; E66.9 Obesity, unspecified; Z87.442 Personal history of urinary calculi; F41.9 Anxiety disorder, unspecified; F32.9 Major depressive disorder, single episode, unspecified; F43.10 Post-traumatic stress disorder, unspecified; K75.9 Inflammatory liver disease, unspecified
CPT/HCPCS: J2704; J7030

== ENCOUNTER → 2018-02-23 | Outpatient (CLI) | payer MEDICAID | LOC: COL.RAD 07:37 | DX: M54.9 Dorsalgia, unspecified (principal); R10.9 Unspecified abdominal pain; R11.2 Nausea with vomiting, unspecified; Z98.890 Other specified postprocedural states; Z90.49 Acquired absence of other specified parts of digestive tract ==

== ENCOUNTER 2018-03-27 05:46 | Emergency (ER) | payer MEDICAID ==
[2005-05-23 10:34] VITALS: BP 111/66
[~2018-03-27] VITALS: Ht 167.6 cm; Wt 90.9 kg
[2018-03-27 05:49] VITALS: BP 116/71; TEMP 98.6
[2018-03-27] MEDS ORDERED: CLEOCIN HCL300 MG PO (06:10)
[2018-03-27] MEDS ORDERED: NORCO 325 MG-51 TAB PO (06:10)
[2018-03-27] MEDS ORDERED: KLONOPIN 0.5MG0.5 MG PO (06:48)
[2018-03-27 06:49] VITALS: PULSE 73
== END 2018-03-27 06:51 | disposition home or self-care (01) ==
LOC: COL.ER 05:46
DX: S02.5XXA Fracture of tooth (traumatic), initial encounter for closed fracture (principal); K02.9 Dental caries, unspecified; J45.909 Unspecified asthma, uncomplicated; F41.9 Anxiety disorder, unspecified; E66.9 Obesity, unspecified; Z68.32 Body mass index [BMI] 32.0-32.9, adult; X58.XXXA Exposure to other specified factors, initial encounter
CPT/HCPCS: J1885

== ENCOUNTER 2018-04-18 15:53 | Emergency (ER) | payer MEDICAID ==
[2005-05-23 10:34] VITALS: BP 111/66
[~2018-04-18] VITALS: Ht 167.6 cm; Wt 90.9 kg
[2018-04-18] MEDS ORDERED: WELLBUTRIN SR150 M1 PO (16:09)
[2018-04-18 17:34] VITALS: BP 121/59; PULSE 89; TEMP 98
== END 2018-04-18 17:42 | disposition home or self-care (01) ==
LOC: COL.ER 15:53
DX: S09.90XA Unspecified injury of head, initial encounter (principal); S16.1XXA Strain of muscle, fascia and tendon at neck level, initial encounter; S30.0XXA Contusion of lower back and pelvis, initial encounter; F43.10 Post-traumatic stress disorder, unspecified; F32.9 Major depressive disorder, single episode, unspecified; F41.9 Anxiety disorder, unspecified; W01.198A Fall on same level from slipping, tripping and stumbling with subsequent striking against other object, initial encounter; Y92.009 Unspecified place in unspecified non-institutional (private) residence as the place of occurrence of the external cause

== ENCOUNTER → 2018-06-05 | Outpatient (CLI) | payer MEDICAID ==
[~2018-06-05] MED LIST changes: +WELLBUTRIN SR150 M1 PO
== END ==
LOC: ZCOL.LAB 15:58
DX: J02.9 Acute pharyngitis, unspecified (principal)

== ENCOUNTER 2018-06-25 11:05 | Emergency (ER) | payer MEDICAID ==
[2005-05-23 10:34] VITALS: BP 111/66
[~2018-06-25] VITALS: Ht 167.6 cm; Wt 95.5 kg
[2018-06-25 11:10] VITALS: TEMP 98.4
[2018-06-25 12:10] LABS: COLLECTION METHOD CLEAN CATCH
[2018-06-25 12:35] LABS: PH 6 (5-8); URINE APPEARANCE Cloudy; URINE BILIRUBIN Negative (NEGATIVE); URINE BLOOD Negative (NEGATIVE); URINE COLOR Amber; URINE GLUCOSE Negative (NEGATIVE); URINE KETONE Negative (NEGATIVE); URINE LEUKOCYTE ESTERASE 2+ (NEGATIVE); URINE NITRATE Negative (NEGATIVE); URINE PROTEIN(semi-quant) 1+ (NEGATIVE); URINE UROBILINOGEN Negative (NEGATIVE)
[2018-06-25 12:36] LABS: URINE BACTERIA Many /hpf
[2018-06-25 12:37] LABS: URINE RBC None Seen /hpf
[2018-06-25 13:21] LABS: BASO % 0.2 % (0.0-2.0); EOS # 0.1 (0.0-0.7); EOS % 1.7 % (0-4.0); GRAN # 1.9 (1.4-6.5); GRAN % 43.9 % (42.2-75.2); HEMOGLOBIN 11.8 g/dl (12.5-16.0); LYMPH % 46.6 % (20.0-51.0); MEAN CELL VOLUME 89 fl (80.0-100.0); MEAN CORPUSCULAR HEMOGLOBIN 29 pg (27.0-31.0); MEAN CORPUSCULAR HGB CONC 32 g/dl (33.0-37.0); MEAN PLATELET VOLUME 10.4 fl (7.4-10.4); MONO # 0.3 (0.1-0.6); MONO % 7.6 % (1.7-9.3); PLATELET COUNT 225 K/mm3 (130-400); RED BLOOD COUNT 4.09 M/mm3 (4.10-5.30); REDCELL DISTRIBUTION WIDTH-CV 13.5 % (11.5-14.5)
[2018-06-25 13:29] LABS: HEMATOCRIT 36.4 % (37.0-47.0)
[2018-06-25 13:31] LABS: ALANINE AMINOTRANSFERASE 18 U/L (9-52); ALBUMIN 3.4 gm/dL (3.5-5.0); ALKALINE PHOSPHATASE 48 U/L (50-136); ANION GAP 4 mmol/L (7-16); AST,SGOT 14 U/L (15-37); BLOOD UREA NITROGEN 7 mg/dL (7-17); C-REACTIVE PROTEIN < 0.5 mg/dL (0.0-0.9); CALCIUM 8.5 mg/dL (8.4-10.2); CARBON DIOXIDE 31 mmol/L (22-30); CHLORIDE 104 mmol/L (98-107); CREATININE, serum 0.66 mg/dL (0.52-1.25); GLUCOSE 81 mg/dL (74-106); POTASSIUM 3.6 mmol/L (3.4-5.0); SODIUM 139 mmol/L (137-145); TOTAL PROTEIN 6.1 gm/dL (6.4-8.2)
[2018-06-25 13:42] LABS: MONOSCREEN NEGATIVE
[2018-06-25 13:58] LABS: THYROID STIMULATING HORMONE 0.182 uIU/mL (0.465-4.680)
[2018-06-25] MEDS ORDERED: CEFTIN500 MG PO (15:17)
[2018-06-25 15:27] VITALS: BP 108/69; PULSE 72
[2018-06-29] MEDS ORDERED: AMBIEN 10MG10 MG PO (13:50)
[2018-06-29] MEDS ORDERED: WOMEN'S DAILY1 TAB PO (13:51)
[2018-06-29] MEDS ORDERED: CYMBALTA 60MG60 MG PO (13:51)
== END 2018-06-25 15:40 | disposition home or self-care (01) ==
LOC: COL.ER 11:05
PROVIDERS: Emergency Medicine; Nurse Practitioner
DX: N39.0 Urinary tract infection, site not specified (principal); F32.9 Major depressive disorder, single episode, unspecified; F41.9 Anxiety disorder, unspecified; Z98.84 Bariatric surgery status; Z90.49 Acquired absence of other specified parts of digestive tract; Z88.2 Allergy status to sulfonamides
CPT/HCPCS: J7030

== ENCOUNTER → 2018-06-29 | Outpatient (CLI) | payer MEDICAID ==
[~2018-06-29] VITALS: Ht 167.6 cm; Wt 94.3 kg
[~2018-06-29] MED LIST changes: +WOMEN'S DAILY1 TAB PO
[2018-06-29 13:51] VITALS: BP 90/50; PULSE 72
== END ==
LOC: LIGHT
DX: Z98.84 Bariatric surgery status (principal); E66.9 Obesity, unspecified; Z68.33 Body mass index [BMI] 33.0-33.9, adult; Z71.3 Dietary counseling and surveillance
CPT/HCPCS: G0463

== ENCOUNTER 2018-07-04 20:33 | Emergency (ER) | payer MEDICAID ==
[2005-05-23 10:34] VITALS: BP 111/66
[~2018-07-04] VITALS: Ht 167.6 cm; Wt 94.1 kg
[2018-07-04 20:54] VITALS: BP 139/67; TEMP 98.5
[2018-07-04 21:06] LABS: COLLECTION METHOD CLEAN CATCH
[2018-07-04 21:14] LABS: MUCOUS Present /lpf; PH 7 (5-8); SQUAMOUS EPITHELIAL 0-2 /hpf; URINE APPEARANCE Cloudy; URINE BACTERIA None Seen /hpf; URINE BILIRUBIN Negative (NEGATIVE); URINE BLOOD Negative (NEGATIVE); URINE COLOR Yellow; URINE GLUCOSE Negative (NEGATIVE); URINE KETONE Negative (NEGATIVE); URINE LEUKOCYTE ESTERASE Negative (NEGATIVE); URINE NITRATE Negative (NEGATIVE); URINE PROTEIN(semi-quant) Negative (NEGATIVE); URINE RBC 0-2 /hpf
[2018-07-04 23:07] LABS: BASO % 0.4 % (0.0-2.0); EOS % 0.4 % (0-4.0); GRAN % 35.6 % (42.2-75.2); HEMATOCRIT 39.8 % (37.0-47.0); HEMOGLOBIN 13.3 g/dl (12.5-16.0); LYMPH # 3.2 (1.2-3.4); LYMPH % 55.8 % (20.0-51.0); MEAN CELL VOLUME 88 fl (80.0-100.0); MEAN CORPUSCULAR HEMOGLOBIN 29 pg (27.0-31.0); MEAN CORPUSCULAR HGB CONC 33 g/dl (33.0-37.0); MEAN PLATELET VOLUME 10.4 fl (7.4-10.4); MONO # 0.4 (0.1-0.6); MONO % 7.8 % (1.7-9.3); PLATELET COUNT 239 K/mm3 (130-400); RED BLOOD COUNT 4.54 M/mm3 (4.10-5.30); REDCELL DISTRIBUTION WIDTH-CV 13.6 % (11.5-14.5)
[2018-07-04 23:23] LABS: ALANINE AMINOTRANSFERASE 6 U/L (9-52); ALBUMIN 3.9 gm/dL (3.5-5.0); ALKALINE PHOSPHATASE 54 U/L (50-136); AST,SGOT 18 U/L (15-37); BILIRUBIN,TOTAL 0.6 mg/dL (0.0-1.0); BLOOD UREA NITROGEN 12 mg/dL (7-17); CALCIUM 8.8 mg/dL (8.4-10.2); CARBON DIOXIDE 29 mmol/L (22-30); CREATININE, serum 0.63 mg/dL (0.52-1.25); GLUCOSE 88 mg/dL (74-106); LIPASE 87 U/L (23-300); POTASSIUM 3.8 mmol/L (3.4-5.0); SODIUM 137 mmol/L (137-145); TOTAL PROTEIN 7.1 gm/dL (6.4-8.2)
[2018-07-04 23:29] LABS: C-REACTIVE PROTEIN < 0.5 mg/dL (0.0-0.9)
[2018-07-04 23:39] LABS: ANION GAP 8 mmol/L (7-16); CHLORIDE 100 mmol/L (98-107)
[2018-07-04] MEDS ORDERED: ZOFRAN ODT4 MG PO (23:55)
[2018-07-05 00:12] VITALS: PULSE 75
== END 2018-07-05 00:12 | disposition home or self-care (01) ==
LOC: COL.ER 20:33
PROVIDERS: Emergency Medicine; Physician Assistant
DX: R10.11 Right upper quadrant pain (principal); Z90.49 Acquired absence of other specified parts of digestive tract
CPT/HCPCS: J2405; J3010

== ENCOUNTER 2018-08-05 18:02 | Emergency (ER) | payer MEDICAID ==
[2005-05-23 10:34] VITALS: BP 111/66
[~2018-08-05] VITALS: Ht 167.6 cm; Wt 93.2 kg
[2018-08-05 18:13] VITALS: BP 100/58; TEMP 97.7
[2018-08-05 19:55] LABS: COLLECTION METHOD CLEAN CATCH
[2018-08-05 20:01] LABS: MUCOUS Present /lpf; PH 5 (5-8); SQUAMOUS EPITHELIAL 0-2 /hpf; URINE APPEARANCE Clear; URINE BACTERIA None Seen /hpf; URINE BILIRUBIN Positive (NEGATIVE); URINE BLOOD Negative (NEGATIVE); URINE COLOR Yellow; URINE GLUCOSE Negative (NEGATIVE); URINE KETONE Trace (NEGATIVE); URINE LEUKOCYTE ESTERASE Negative (NEGATIVE); URINE NITRATE Negative (NEGATIVE); URINE PROTEIN(semi-quant) 1+ (NEGATIVE); URINE UROBILINOGEN Negative (NEGATIVE)
[2018-08-05 20:46] LABS: BASO % 0.1 % (0.0-2.0); EOS % 0.3 % (0-4.0); GRAN # 5.5 (1.4-6.5); GRAN % 69.5 % (42.2-75.2); HEMATOCRIT 37.8 % (37.0-47.0); HEMOGLOBIN 12.4 g/dl (12.5-16.0); LYMPH # 1.9 (1.2-3.4); LYMPH % 23.7 % (20.0-51.0); MEAN CELL VOLUME 89 fl (80.0-100.0); MEAN CORPUSCULAR HEMOGLOBIN 29 pg (27.0-31.0); MEAN CORPUSCULAR HGB CONC 33 g/dl (33.0-37.0); MEAN PLATELET VOLUME 10.1 fl (7.4-10.4); MONO # 0.5 (0.1-0.6); PLATELET COUNT 255 K/mm3 (130-400); RED BLOOD COUNT 4.25 M/mm3 (4.10-5.30); REDCELL DISTRIBUTION WIDTH-CV 14.3 % (11.5-14.5)
[2018-08-05 21:00] LABS: ALANINE AMINOTRANSFERASE < 6 U/L (9-52); ALBUMIN 4.2 gm/dL (3.5-5.0); ALKALINE PHOSPHATASE 69 U/L (50-136); ANION GAP 6 mmol/L (7-16); AST,SGOT 23 U/L (15-37); BILIRUBIN,TOTAL 0.6 mg/dL (0.0-1.0); BLOOD UREA NITROGEN 11 mg/dL (7-17); CALCIUM 9.3 mg/dL (8.4-10.2); CARBON DIOXIDE 27 mmol/L (22-30); CHLORIDE 103 mmol/L (98-107); CREATININE, serum 0.68 (0.52-1.25); GLUCOSE 105 mg/dL (74-106); POTASSIUM 3.5 mmol/L (3.4-5.0); SODIUM 136 mmol/L (137-145); TOTAL PROTEIN 7.7 gm/dL (6.4-8.2)
[2018-08-05 21:04] LABS: C-REACTIVE PROTEIN < 0.5 mg/dL (0.0-0.9)
[2018-08-05 22:25] VITALS: PULSE 78
== END 2018-08-05 22:25 | disposition home or self-care (01) ==
LOC: COL.ER 18:02
PROVIDERS: Nurse Practitioner
DX: R42 Dizziness and giddiness (principal); J45.909 Unspecified asthma, uncomplicated; F41.9 Anxiety disorder, unspecified; F43.10 Post-traumatic stress disorder, unspecified; F32.9 Major depressive disorder, single episode, unspecified; Z90.49 Acquired absence of other specified parts of digestive tract; Z98.51 Tubal ligation status; Z88.2 Allergy status to sulfonamides; Z98.890 Other specified postprocedural states; Z88.8 Allergy status to other drugs, medicaments and biological substances
CPT/HCPCS: J1885; J2405; J2765; J7030

== ENCOUNTER 2018-08-14 14:32 | Emergency (ER) | payer MEDICAID ==
[2005-05-23 10:34] VITALS: BP 111/66
[~2018-08-14] VITALS: Ht 167.6 cm; Wt 99.1 kg
[2018-08-14 15:01] VITALS: TEMP 97.7
[2018-08-14 19:15] LABS: BASO % 0.3 % (0.0-2.0); EOS % 0.6 % (0-4.0); HEMOGLOBIN 11.1 g/dl (12.5-16.0); LYMPH # 2.8 (1.2-3.4); LYMPH % 44.4 % (20.0-51.0); MEAN CELL VOLUME 88 fl (80.0-100.0); MEAN CORPUSCULAR HEMOGLOBIN 29 pg (27.0-31.0); MEAN CORPUSCULAR HGB CONC 33 g/dl (33.0-37.0); MEAN PLATELET VOLUME 9.9 fl (7.4-10.4); MONO # 0.4 (0.1-0.6); MONO % 6.4 % (1.7-9.3); PLATELET COUNT 268 K/mm3 (130-400); REDCELL DISTRIBUTION WIDTH-CV 14.7 % (11.5-14.5)
[2018-08-14 19:16] LABS: ALANINE AMINOTRANSFERASE 14 U/L (9-52); ALBUMIN 3.6 gm/dL (3.5-5.0); ALKALINE PHOSPHATASE 54 U/L (50-136); ANION GAP 8 mmol/L (7-16); AST,SGOT 23 U/L (15-37); BILIRUBIN,TOTAL 0.7 mg/dL (0.0-1.0); BLOOD UREA NITROGEN 10 mg/dL (7-17); CALCIUM 8.7 mg/dL (8.4-10.2); CARBON DIOXIDE 25 mmol/L (22-30); CHLORIDE 108 mmol/L (98-107); CREATININE, serum 0.59 (0.52-1.25); GLUCOSE 83 mg/dL (74-106); HEMATOCRIT 33.6 % (37.0-47.0); LIPASE 64 U/L (23-300); POTASSIUM 3.6 mmol/L (3.4-5.0); SODIUM 140 mmol/L (137-145); TOTAL PROTEIN 6.5 gm/dL (6.4-8.2)
[2018-08-14 19:30] LABS: C-REACTIVE PROTEIN < 0.5 mg/dL (0.0-0.9)
[2018-08-14 20:34] LABS: COLLECTION METHOD CLEAN CATCH
[2018-08-14 20:41] LABS: MUCOUS Present /lpf; PH 6 (5-8); SQUAMOUS EPITHELIAL 0-2 /hpf; URINE APPEARANCE Clear; URINE BACTERIA None Seen /hpf; URINE BILIRUBIN Negative (NEGATIVE); URINE BLOOD Negative (NEGATIVE); URINE COLOR Yellow; URINE GLUCOSE Negative (NEGATIVE); URINE KETONE Trace (NEGATIVE); URINE LEUKOCYTE ESTERASE Negative (NEGATIVE); URINE NITRATE Negative (NEGATIVE); URINE PROTEIN(semi-quant) Negative (NEGATIVE); URINE RBC 0-2 /hpf; URINE UROBILINOGEN Negative (NEGATIVE)
[2018-08-14] MEDS ORDERED: NORCO 325 MG-51 TAB PO (22:58)
[2018-08-14 23:17] VITALS: BP 123/64; PULSE 70
== END 2018-08-14 23:17 | disposition home or self-care (01) ==
LOC: COL.ER 14:32
PROVIDERS: Emergency Medicine
DX: N83.201 Unspecified ovarian cyst, right side (principal); E66.9 Obesity, unspecified; Z98.51 Tubal ligation status; Z98.890 Other specified postprocedural states; Z90.49 Acquired absence of other specified parts of digestive tract; Z98.84 Bariatric surgery status; Z68.35 Body mass index [BMI] 35.0-35.9, adult
CPT/HCPCS: J0500; J2405; J3010; J7030; Q9967

== ENCOUNTER 2018-09-07 17:43 | Emergency (ER) | payer MEDICAID ==
[2005-05-23 10:34] VITALS: BP 111/66
[~2018-09-07] VITALS: Ht 167.6 cm; Wt 95.5 kg
[2018-09-07 17:55] VITALS: TEMP 98
[2018-09-07] MEDS ORDERED: CELEXA 20MG20 MG/TAB PO (18:13)
[2018-09-07] MEDS ORDERED: LAMICTAL 25MG T25 MG PO (18:14)
[2018-09-07 18:45] LABS: COLLECTION METHOD CLEAN CATCH
[2018-09-07 18:58] LABS: BASO % 0.5 % (0.0-2.0); EOS # 0.1 (0.0-0.7); EOS % 1.2 % (0-4.0); GRAN # 2.9 (1.4-6.5); GRAN % 49.5 % (42.2-75.2); HEMOGLOBIN 12.1 g/dl (12.5-16.0); LYMPH # 2.3 (1.2-3.4); LYMPH % 39.7 % (20.0-51.0); MEAN CELL VOLUME 88 fl (80.0-100.0); MEAN CORPUSCULAR HEMOGLOBIN 29 pg (27.0-31.0); MEAN CORPUSCULAR HGB CONC 33 g/dl (33.0-37.0); MEAN PLATELET VOLUME 9.8 fl (7.4-10.4); MONO # 0.5 (0.1-0.6); MONO % 8.9 % (1.7-9.3); PLATELET COUNT 284 K/mm3 (130-400); RED BLOOD COUNT 4.16 M/mm3 (4.10-5.30); REDCELL DISTRIBUTION WIDTH-CV 14.4 % (11.5-14.5)
[2018-09-07 18:59] LABS: MUCOUS Present /lpf; PH 5 (5-8); SQUAMOUS EPITHELIAL 0-2 /hpf; URINE APPEARANCE Clear; URINE BACTERIA Many /hpf; URINE BILIRUBIN Negative (NEGATIVE); URINE BLOOD Negative (NEGATIVE); URINE COLOR Amber; URINE GLUCOSE Negative (NEGATIVE); URINE KETONE Negative (NEGATIVE); URINE LEUKOCYTE ESTERASE Negative (NEGATIVE); URINE NITRATE Negative (NEGATIVE); URINE PROTEIN(semi-quant) Negative (NEGATIVE); URINE RBC None Seen /hpf; URINE UROBILINOGEN Negative (NEGATIVE)
[2018-09-07 19:03] LABS: HEMATOCRIT 36.5 % (37.0-47.0)
[2018-09-07 19:05] LABS: TRICYCLIC ANTIDEPRESS URINE NEGATIVE
[2018-09-07 19:08] LABS: ALANINE AMINOTRANSFERASE 13 U/L (9-52); ALKALINE PHOSPHATASE 68 U/L (50-136); ANION GAP 9 mmol/L (7-16); AST,SGOT 25 U/L (15-37); BILIRUBIN,TOTAL 1.2 mg/dL (0.0-1.0); BLOOD UREA NITROGEN 12 mg/dL (7-17); CALCIUM 9.2 mg/dL (8.4-10.2); CARBON DIOXIDE 27 mmol/L (22-30); CHLORIDE 103 mmol/L (98-107); CREATININE, serum 0.75 (0.52-1.25); GLUCOSE 79 mg/dL (74-106); POTASSIUM 3.5 mmol/L (3.4-5.0); SODIUM 139 mmol/L (137-145); TOTAL PROTEIN 7.3 gm/dL (6.4-8.2)
[2018-09-07 19:09] LABS: ACETAMINOPHEN < 10 ug/mL (10-30); ALCOHOL(ethanol),MEDICAL < 10 mg/dL; SALICYLATE < 1.0 mg/dL
[2018-09-07 22:15] VITALS: BP 95/60; PULSE 95
[2018-09-10] MEDS ORDERED: CEPHALEXIN500 M1 PO (13:46)
== END 2018-09-07 22:20 | disposition home or self-care (01) ==
LOC: COL.ER 17:43
PROVIDERS: Nurse Practitioner
DX: F32.9 Major depressive disorder, single episode, unspecified (principal); F43.10 Post-traumatic stress disorder, unspecified; F41.9 Anxiety disorder, unspecified; F12.90 Cannabis use, unspecified, uncomplicated; Z87.891 Personal history of nicotine dependence

== ENCOUNTER → 2018-09-12 | Emergency (ER) | payer MEDICAID ==
[2005-05-23 10:34] VITALS: BP 111/66
[~2018-09-12] VITALS: Ht 170.2 cm; Wt 95.6 kg
[~2018-09-12] MED LIST changes: +CELEXA 20MG20 MG/TAB PO; +CEPHALEXIN500 M1 PO; +LAMICTAL 25MG T25 MG PO
[2018-09-12 18:03] LABS: BASO % 0.6 % (0.0-2.0); EOS # 0.1 (0.0-0.7); EOS % 1.1 % (0-4.0); GRAN # 2.2 (1.4-6.5); GRAN % 41.5 % (42.2-75.2); HEMATOCRIT 36.5 % (37.0-47.0); HEMOGLOBIN 11.8 g/dl (12.5-16.0); LYMPH # 2.6 (1.2-3.4); MEAN CELL VOLUME 90 fl (80.0-100.0); MEAN CORPUSCULAR HEMOGLOBIN 29 pg (27.0-31.0); MEAN CORPUSCULAR HGB CONC 32 g/dl (33.0-37.0); MEAN PLATELET VOLUME 10.5 fl (7.4-10.4); MONO # 0.5 (0.1-0.6); MONO % 8.6 % (1.7-9.3); PLATELET COUNT 263 K/mm3 (130-400); RED BLOOD COUNT 4.06 M/mm3 (4.10-5.30); REDCELL DISTRIBUTION WIDTH-CV 14.5 % (11.5-14.5)
[2018-09-12 18:08] LABS: ALANINE AMINOTRANSFERASE 7 U/L (9-52); ALBUMIN 3.8 gm/dL (3.5-5.0); ALKALINE PHOSPHATASE 58 U/L (50-136); ANION GAP 9 mmol/L (7-16); AST,SGOT 22 U/L (15-37); BLOOD UREA NITROGEN 10 mg/dL (7-17); CARBON DIOXIDE 29 mmol/L (22-30); CHLORIDE 103 mmol/L (98-107); CREATININE, serum 0.68 (0.52-1.25); GLUCOSE 69 mg/dL (74-106); POTASSIUM 3.8 mmol/L (3.4-5.0); SODIUM 141 mmol/L (137-145); TOTAL PROTEIN 7.2 gm/dL (6.4-8.2)
[2018-09-12 18:31] LABS: ACETAMINOPHEN < 10 ug/mL (10-30); ALCOHOL(ethanol),MEDICAL < 10 mg/dL; SALICYLATE < 1.0 mg/dL
[2018-09-12 18:37] LABS: COLLECTION METHOD CLEAN CATCH
[2018-09-12 18:50] LABS: MUCOUS Present /lpf; PH 5 (5-8); URINE APPEARANCE Hazy; URINE BACTERIA Many /hpf; URINE BILIRUBIN Negative (NEGATIVE); URINE BLOOD Negative (NEGATIVE); URINE COLOR Amber; URINE GLUCOSE Negative (NEGATIVE); URINE KETONE Negative (NEGATIVE); URINE LEUKOCYTE ESTERASE 1+ (NEGATIVE); URINE NITRATE Positive (NEGATIVE); URINE PROTEIN(semi-quant) Negative (NEGATIVE); URINE UROBILINOGEN Negative (NEGATIVE)
[2018-09-12 18:57] LABS: TRICYCLIC ANTIDEPRESS URINE NEGATIVE
[2018-09-14 10:15] VITALS: BP 93/57; PULSE 83; TEMP 98.1
== END ==
LOC: COL.ER 16:38
PROVIDERS: Family Medicine
DX: T42.4X2A Poisoning by benzodiazepines, intentional self-harm, initial encounter (principal); F32.9 Major depressive disorder, single episode, unspecified; F43.10 Post-traumatic stress disorder, unspecified
CPT/HCPCS: J1200; J1630

== ENCOUNTER 2018-10-01 23:26 | Emergency (ER) | payer MEDICAID ==
[2005-05-23 10:34] VITALS: BP 111/66
[~2018-10-01] VITALS: Ht 167.6 cm; Wt 95.5 kg
[2018-10-01 23:35] VITALS: BP 120/70; PULSE 81; TEMP 100.6
== END 2018-10-01 23:53 | disposition left against medical advice (07) ==
LOC: COL.ER 23:26
DX: N93.9 Abnormal uterine and vaginal bleeding, unspecified (principal)

== ENCOUNTER 2018-10-02 11:32 | Emergency (ER) | payer MEDICAID ==
[2005-05-23 10:34] VITALS: BP 111/66
[~2018-10-02] VITALS: Ht 167.6 cm; Wt 95.5 kg
[2018-10-02 11:35] VITALS: BP 124/67; PULSE 86; TEMP 99.2
== END 2018-10-02 13:20 | disposition left against medical advice (07) ==
LOC: COL.ER 11:32
DX: N93.9 Abnormal uterine and vaginal bleeding, unspecified (principal)

== ENCOUNTER 2018-10-29 02:05 | Emergency (ER) | payer MEDICAID ==
[2005-05-23 10:34] VITALS: BP 111/66
[~2018-10-29] VITALS: Ht 167.6 cm; Wt 95.5 kg
[2018-10-29 02:08] VITALS: BP 118/64; TEMP 97.4
[2018-10-29] MEDS ORDERED: WELLBUTRIN XL300 M1 PO (02:12)
[2018-10-29] MEDS ORDERED: ABILIFY20 MG PO (02:12)
[2018-10-29] MEDS ORDERED: COGENTIN 1MG1 MG/TAB PO (02:13)
[2018-10-29 02:38] LABS: BASO % 0.4 % (0.0-2.0); EOS % 0.5 % (0-4.0); GRAN # 3.6 (1.4-6.5); GRAN % 43.8 % (42.2-75.2); HEMOGLOBIN 11.8 g/dl (12.5-16.0); LYMPH # 3.8 (1.2-3.4); LYMPH % 46.6 % (20.0-51.0); MEAN CELL VOLUME 88 fl (80.0-100.0); MEAN CORPUSCULAR HEMOGLOBIN 29 pg (27.0-31.0); MEAN CORPUSCULAR HGB CONC 33 g/dl (33.0-37.0); MONO # 0.7 (0.1-0.6); MONO % 8.6 % (1.7-9.3); PLATELET COUNT 294 K/mm3 (130-400); RED BLOOD COUNT 4.11 M/mm3 (4.10-5.30)
[2018-10-29 02:47] LABS: ALBUMIN 3.9 gm/dL (3.5-5.0); BILIRUBIN,TOTAL 0.5 mg/dL (0.0-1.0); CALCIUM 8.9 mg/dL (8.4-10.2); CREATININE, serum 0.65 (0.52-1.25); POTASSIUM 3.9 mmol/L (3.4-5.0); TOTAL PROTEIN 7.1 gm/dL (6.4-8.2)
[2018-10-29 03:10] LABS: COLLECTION METHOD CLEAN CATCH
[2018-10-29 03:17] LABS: MUCOUS Present /lpf; PH 6 (5-8); SQUAMOUS EPITHELIAL 0-2 /hpf; URINE APPEARANCE Clear; URINE BACTERIA None Seen /hpf; URINE BILIRUBIN Negative (NEGATIVE); URINE BLOOD Negative (NEGATIVE); URINE COLOR Yellow; URINE GLUCOSE Negative (NEGATIVE); URINE KETONE Negative (NEGATIVE); URINE LEUKOCYTE ESTERASE Negative (NEGATIVE); URINE NITRATE Negative (NEGATIVE); URINE PROTEIN(semi-quant) Negative (NEGATIVE); URINE RBC 0-2 /hpf; URINE UROBILINOGEN Negative (NEGATIVE)
[2018-10-29] MEDS ORDERED: COMPAZINE25 MG/SUPP RC (03:29)
[2018-10-29 03:35] VITALS: PULSE 93
== END 2018-10-29 03:37 | disposition home or self-care (01) ==
LOC: COL.ER 02:05
PROVIDERS: Emergency Medicine
DX: R10.9 Unspecified abdominal pain (principal); G89.29 Other chronic pain; R11.2 Nausea with vomiting, unspecified; E66.9 Obesity, unspecified; F32.9 Major depressive disorder, single episode, unspecified; F43.10 Post-traumatic stress disorder, unspecified; Z68.33 Body mass index [BMI] 33.0-33.9, adult; Z87.11 Personal history of peptic ulcer disease; Z87.442 Personal history of urinary calculi; Z87.440 Personal history of urinary (tract) infections; Z90.49 Acquired absence of other specified parts of digestive tract
CPT/HCPCS: J2405; J7030

== ENCOUNTER 2019-01-26 11:42 | Emergency (ER) | payer MEDICAID ==
[2005-05-23 10:34] VITALS: BP 111/66
[~2019-01-26] VITALS: Ht 167.6 cm; Wt 103.6 kg
[~2019-01-26 11:42] MED LIST changes: +ABILIFY20 MG PO; +COGENTIN 1MG1 MG/TAB PO; +COMPAZINE25 MG/SUPP RC
[2019-01-26 11:46] VITALS: BP 142/72; PULSE 92; TEMP 98.3
[2019-01-26] MEDS ORDERED: ABIL400 IM (12:22)
[2019-01-26] MEDS ORDERED: ATARAX 25MG25 MG/TAB PO (12:23)
[2019-01-26] MEDS ORDERED: LEXAPRO 10MG10 MG PO (12:24)
[2019-01-26 12:45] LABS: BASO % 0.4 % (0.0-2.0); EOS % 0.4 % (0-4.0); GRAN # 2.3 (1.4-6.5); GRAN % 48.7 % (42.2-75.2); HEMATOCRIT 38.7 % (37.0-47.0); HEMOGLOBIN 12.5 g/dl (12.5-16.0); LYMPH # 2.1 (1.2-3.4); MEAN CELL VOLUME 86 fl (80.0-100.0); MEAN CORPUSCULAR HEMOGLOBIN 28 pg (27.0-31.0); MEAN CORPUSCULAR HGB CONC 32 g/dl (33.0-37.0); MONO # 0.4 (0.1-0.6); MONO % 7.5 % (1.7-9.3); PLATELET COUNT 274 K/mm3 (130-400); REDCELL DISTRIBUTION WIDTH-CV 15.5 % (11.5-14.5)
[2019-01-26 13:05] LABS: ALBUMIN 4.3 gm/dL (3.5-5.0); BILIRUBIN,TOTAL 0.7 mg/dL (0.0-1.0); CREATININE, serum 0.79 (0.52-1.25); POTASSIUM 3.9 mmol/L (3.4-5.0); TOTAL PROTEIN 7.7 gm/dL (6.4-8.2)
[2019-01-26 16:06] LABS: TSH w REFLEX 0.467 uIU/mL (0.465-4.680)
== END 2019-01-26 14:15 | disposition home or self-care (01) ==
LOC: COL.ER 11:42
PROVIDERS: Physician Assistant
DX: R53.81 Other malaise (principal); L65.9 Nonscarring hair loss, unspecified; F41.9 Anxiety disorder, unspecified; F32.9 Major depressive disorder, single episode, unspecified; Z98.84 Bariatric surgery status; Z88.5 Allergy status to narcotic agent; Z88.2 Allergy status to sulfonamides

== ENCOUNTER 2019-04-25 22:13 | Emergency (ER) | payer MEDICAID ==
[2005-05-23 10:34] VITALS: BP 111/66
[~2019-04-25] VITALS: Ht 167.6 cm; Wt 100.0 kg
[~2019-04-25 22:13] MED LIST changes: +LEXAPRO 10MG10 MG PO
[2019-04-25 23:21] LABS: BASO % 0.6 % (0.0-2.0); EOS # 0.1 (0.0-0.7); EOS % 1.2 % (0-4.0); GRAN # 2.8 (1.4-6.5); GRAN % 38.5 % (42.2-75.2); HEMOGLOBIN 11.6 g/dl (12.5-16.0); LYMPH # 3.7 (1.2-3.4); LYMPH % 51.4 % (20.0-51.0); MEAN CELL VOLUME 85 fl (80.0-100.0); MEAN CORPUSCULAR HEMOGLOBIN 28 pg (27.0-31.0); MEAN CORPUSCULAR HGB CONC 33 g/dl (33.0-37.0); MEAN PLATELET VOLUME 9.8 fl (7.4-10.4); MONO # 0.6 (0.1-0.6); PLATELET COUNT 335 K/mm3 (130-400); REDCELL DISTRIBUTION WIDTH-CV 15.1 % (11.5-14.5)
[2019-04-25 23:22] LABS: HEMATOCRIT 35.7 % (37.0-47.0)
[2019-04-25 23:26] LABS: ALANINE AMINOTRANSFERASE 20 U/L (9-52); ALBUMIN 3.9 gm/dL (3.5-5.0); ALKALINE PHOSPHATASE 75 U/L (50-136); ANION GAP 7 mmol/L (7-16); AST,SGOT 25 U/L (15-37); BILIRUBIN,TOTAL 0.3 mg/dL (0.0-1.0); BLOOD UREA NITROGEN 9 mg/dL (7-17); CALCIUM 8.5 mg/dL (8.4-10.2); CARBON DIOXIDE 26 mmol/L (22-30); CHLORIDE 106 mmol/L (98-107); CREATININE, serum 0.78 (0.52-1.25); GLUCOSE 86 mg/dL (74-106); LIPASE 151 U/L (23-300); POTASSIUM 3.7 mmol/L (3.4-5.0); SODIUM 139 mmol/L (137-145); TOTAL PROTEIN 7.2 gm/dL (6.4-8.2)
[2019-04-25 23:40] LABS: TROPONIN-I < 0.012 ng/mL (0.000-0.035)
[2019-04-25 23:56] LABS: COLLECTION METHOD CLEAN CATCH
[2019-04-26 00:01] LABS: MUCOUS Present /lpf; PH 5 (5-8); SQUAMOUS EPITHELIAL 0-2 /hpf; URINE APPEARANCE Clear; URINE BACTERIA Rare /hpf; URINE BILIRUBIN Negative (NEGATIVE); URINE BLOOD Negative (NEGATIVE); URINE COLOR Yellow; URINE GLUCOSE Negative (NEGATIVE); URINE KETONE Negative (NEGATIVE); URINE LEUKOCYTE ESTERASE Negative (NEGATIVE); URINE NITRATE Negative (NEGATIVE); URINE PROTEIN(semi-quant) Negative (NEGATIVE); URINE RBC 0-2 /hpf
[2019-04-26] MEDS ORDERED: ZOFRAN ODT4 MG PO (01:27)
[2019-04-26] MEDS ORDERED: COMPAZINE 110 MG/TAB PO (01:27)
[2019-04-26] MEDS ORDERED: FLEXERIL 1010 MG/TAB PO (01:29)
[2019-04-26 01:32] VITALS: BP 103/69; PULSE 802; TEMP 98.6
[2019-04-29] MEDS ORDERED: FASTIN30 MG PO (17:14)
== END 2019-04-26 01:35 | disposition home or self-care (01) ==
LOC: COL.ER 22:13
PROVIDERS: Emergency Medicine
DX: R11.2 Nausea with vomiting, unspecified (principal); R19.7 Diarrhea, unspecified; M54.9 Dorsalgia, unspecified; R07.89 Other chest pain; Z90.89 Acquired absence of other organs; Z98.890 Other specified postprocedural states; Z68.35 Body mass index [BMI] 35.0-35.9, adult
CPT/HCPCS: J0780; J1200; J2405; J7030

== ENCOUNTER → 2019-06-03 | Outpatient (CLI) | payer MEDICAID ==
[~2019-06-03] VITALS: Ht 167.6 cm; Wt 108.4 kg
[~2019-06-03] MED LIST changes: +COMPAZINE 110 MG/TAB PO
[2019-06-03 15:39] VITALS: BP 92/70; PULSE 80
== END ==
LOC: LIGHT 14:28
DX: Z68.38 Body mass index [BMI] 38.0-38.9, adult (principal); Z98.84 Bariatric surgery status; F32.9 Major depressive disorder, single episode, unspecified
CPT/HCPCS: G0463

== ENCOUNTER 2019-09-07 16:00 | Emergency (ER) | payer MEDICAID ==
[2005-05-23 10:34] VITALS: BP 111/66
[~2019-09-07] VITALS: Ht 167.6 cm; Wt 109.1 kg
[2019-09-07 17:32] LABS: BASO % 0.3 % (0.0-2.0); EOS % 0.3 % (0-4.0); GRAN # 4.8 (1.4-6.5); GRAN % 66.2 % (42.2-75.2); HEMOGLOBIN 10.4 g/dl (12.5-16.0); LYMPH # 1.9 (1.2-3.4); LYMPH % 26.8 % (20.0-51.0); MEAN CELL VOLUME 85 fl (80.0-100.0); MEAN CORPUSCULAR HEMOGLOBIN 27 pg (27.0-31.0); MEAN CORPUSCULAR HGB CONC 31 g/dl (33.0-37.0); MEAN PLATELET VOLUME 9.9 fl (7.4-10.4); MONO # 0.4 (0.1-0.6); MONO % 6.1 % (1.7-9.3); PLATELET COUNT 343 K/mm3 (130-400); RED BLOOD COUNT 3.91 M/mm3 (4.10-5.30); REDCELL DISTRIBUTION WIDTH-CV 15.4 % (11.5-14.5)
[2019-09-07 17:34] LABS: HEMATOCRIT 33.1 % (37.0-47.0)
[2019-09-07 17:45] LABS: ALANINE AMINOTRANSFERASE 15 U/L (4-34); ALBUMIN 3.8 gm/dL (3.5-5.0); ALKALINE PHOSPHATASE 70 U/L (50-136); ANION GAP 7 mmol/L (7-16); AST,SGOT 35 U/L (15-37); BILIRUBIN,TOTAL 0.5 mg/dL (0.0-1.0); BLOOD UREA NITROGEN 10 mg/dL (7-17); CARBON DIOXIDE 24 mmol/L (22-30); CHLORIDE 106 mmol/L (98-107); CREATININE, serum 0.66 (0.52-1.25); GLUCOSE 86 mg/dL (74-106); POTASSIUM 3.4 mmol/L (3.4-5.0); SODIUM 137 mmol/L (137-145); TOTAL PROTEIN 7.1 gm/dL (6.4-8.2)
[2019-09-07 18:01] LABS: TROPONIN-I < 0.012 ng/mL (0.000-0.035)
[2019-09-07 18:08] LABS: COLLECTION METHOD CLEAN CATCH
[2019-09-07 18:13] LABS: PH 7 (5-8); SQUAMOUS EPITHELIAL 0-2 /hpf; URINE APPEARANCE Clear; URINE BACTERIA Rare /hpf; URINE BILIRUBIN Negative (NEGATIVE); URINE BLOOD Negative (NEGATIVE); URINE COLOR Straw; URINE GLUCOSE Negative (NEGATIVE); URINE KETONE Negative (NEGATIVE); URINE LEUKOCYTE ESTERASE Negative (NEGATIVE); URINE NITRATE Negative (NEGATIVE); URINE PROTEIN(semi-quant) Negative (NEGATIVE); URINE RBC 0-2 /hpf; URINE UROBILINOGEN Negative (NEGATIVE)
[2019-09-07] MEDS ORDERED: COMPAZINE 110 MG/TAB PO (19:33)
[2019-09-07 19:42] VITALS: BP 116/72; PULSE 85; TEMP 98.5
== END 2019-09-07 19:48 | disposition home or self-care (01) ==
LOC: COL.ER 16:00
PROVIDERS: Physician Assistant
DX: R11.2 Nausea with vomiting, unspecified (principal); R42 Dizziness and giddiness; F43.10 Post-traumatic stress disorder, unspecified; F32.9 Major depressive disorder, single episode, unspecified; F41.9 Anxiety disorder, unspecified
CPT/HCPCS: J0780; J2060; J7030

== ENCOUNTER → 2019-09-23 | Outpatient (CLI) | payer MEDICAID ==
[~2019-09-23] VITALS: Ht 167.6 cm; Wt 113.2 kg
[~2019-09-23] MED LIST changes: +LEXAPRO20 MG PO
[2019-09-23 09:35] VITALS: BP 106/80; PULSE 80
== END ==
LOC: LIGHT 07-08 11:52
DX: Z68.41 Body mass index [BMI] 40.0-44.9, adult (principal); Z98.84 Bariatric surgery status
CPT/HCPCS: G0463

== ENCOUNTER 2019-10-04 11:51 | Emergency (ER) | payer MEDICAID ==
[2005-05-23 10:34] VITALS: BP 111/66
[~2019-10-04] VITALS: Ht 167.6 cm; Wt 109.1 kg
[2019-10-04 12:00] VITALS: TEMP 97.9
[2019-10-04 12:48] LABS: BASO % 0.3 % (0.0-2.0); EOS # 0.1 (0.0-0.7); EOS % 0.8 % (0-4.0); GRAN # 3.6 (1.4-6.5); GRAN % 46.2 % (42.2-75.2); HEMATOCRIT 38.1 % (37.0-47.0); LYMPH # 3.4 (1.2-3.4); LYMPH % 43.8 % (20.0-51.0); MEAN CELL VOLUME 83 fl (80.0-100.0); MEAN CORPUSCULAR HEMOGLOBIN 26 pg (27.0-31.0); MEAN CORPUSCULAR HGB CONC 32 g/dl (33.0-37.0); MEAN PLATELET VOLUME 10.4 fl (7.4-10.4); MONO # 0.7 (0.1-0.6); MONO % 8.8 % (1.7-9.3); PLATELET COUNT 357 K/mm3 (130-400); RED BLOOD COUNT 4.61 M/mm3 (4.10-5.30); REDCELL DISTRIBUTION WIDTH-CV 15.9 % (11.5-14.5)
[2019-10-04 13:03] LABS: ALANINE AMINOTRANSFERASE 12 U/L (4-34); ALBUMIN 4.3 gm/dL (3.5-5.0); ALKALINE PHOSPHATASE 67 U/L (50-136); ANION GAP 7 mmol/L (7-16); AST,SGOT 24 U/L (15-37); BILIRUBIN,TOTAL 0.9 mg/dL (0.0-1.0); BLOOD UREA NITROGEN 11 mg/dL (7-17); CALCIUM 9.2 mg/dL (8.4-10.2); CARBON DIOXIDE 27 mmol/L (22-30); CHLORIDE 102 mmol/L (98-107); CREATININE, serum 0.79 (0.52-1.25); GLUCOSE 81 mg/dL (74-106); LIPASE 82 U/L (23-300); POTASSIUM 3.9 mmol/L (3.4-5.0); SODIUM 136 mmol/L (137-145)
[2019-10-04 13:15] LABS: TROPONIN-I < 0.012 ng/mL (0.000-0.035)
[2019-10-04 16:00] LABS: COLLECTION METHOD CLEAN CATCH
[2019-10-04 16:07] LABS: MUCOUS Present /lpf; PH 7 (5-8); SQUAMOUS EPITHELIAL 0-2 /hpf; URINE APPEARANCE Hazy; URINE BACTERIA Many /hpf; URINE BILIRUBIN Negative (NEGATIVE); URINE BLOOD Negative (NEGATIVE); URINE COLOR Yellow; URINE GLUCOSE Negative (NEGATIVE); URINE KETONE 1+ (NEGATIVE); URINE LEUKOCYTE ESTERASE Negative (NEGATIVE); URINE NITRATE Negative (NEGATIVE); URINE PROTEIN(semi-quant) Negative (NEGATIVE); URINE RBC 0-2 /hpf
[2019-10-04 17:18] VITALS: BP 100/70; PULSE 101
== END 2019-10-04 17:18 | disposition home or self-care (01) ==
LOC: COL.ER 11:51
PROVIDERS: Emergency Medicine
DX: R07.89 Other chest pain (principal); F41.9 Anxiety disorder, unspecified; Z88.6 Allergy status to analgesic agent; Z88.2 Allergy status to sulfonamides; Z88.1 Allergy status to other antibiotic agents; Z88.8 Allergy status to other drugs, medicaments and biological substances; Z32.02 Encounter for pregnancy test, result negative; Z98.51 Tubal ligation status
CPT/HCPCS: J1790; J1885; J2060; J7030

== ENCOUNTER → 2019-10-28 | Outpatient (CLI) | payer MEDICAID ==
[~2019-10-28] VITALS: Ht 167.6 cm; Wt 105.9 kg
[~2019-10-28] MED LIST changes: +SAXENDA6 MG/ML SQ
[2019-10-28 13:08] VITALS: BP 104/60; PULSE 80
== END ==
LOC: LIGHT 11:28
DX: E66.8 Other obesity (principal); Z68.37 Body mass index [BMI] 37.0-37.9, adult; Z98.84 Bariatric surgery status
CPT/HCPCS: G0463

== ENCOUNTER → 2020-01-20 | Outpatient (CLI) | payer MEDICAID ==
[~2020-01-20] VITALS: Ht 167.6 cm; Wt 102.1 kg
[2020-01-20 15:02] VITALS: BP 98/72; PULSE 80
== END ==
LOC: LIGHT 12-02 14:48
DX: E66.8 Other obesity (principal); Z68.36 Body mass index [BMI] 36.0-36.9, adult; Z98.84 Bariatric surgery status; F32.9 Major depressive disorder, single episode, unspecified
CPT/HCPCS: G0463

== ENCOUNTER 2020-02-18 09:51 | Emergency (ER) | payer MEDICAID ==
[2005-05-23 10:34] VITALS: BP 111/66
[~2020-02-18] VITALS: Ht 167.6 cm; Wt 102.3 kg
[2020-02-18 10:04] VITALS: TEMP 97.1
[2020-02-18 11:39] LABS: BASO % 0.2 % (0.0-2.0); GRAN # 5.6 (1.4-6.5); GRAN % 65.1 % (42.2-75.2); HEMATOCRIT 37.7 % (37.0-47.0); HEMOGLOBIN 12.1 g/dl (12.5-16.0); LYMPH # 2.3 (1.2-3.4); LYMPH % 26.6 % (20.0-51.0); MEAN CELL VOLUME 84 fl (80.0-100.0); MEAN CORPUSCULAR HEMOGLOBIN 27 pg (27.0-31.0); MEAN CORPUSCULAR HGB CONC 32 g/dl (33.0-37.0); MEAN PLATELET VOLUME 10.4 fl (7.4-10.4); MONO # 0.7 (0.1-0.6); MONO % 7.6 % (1.7-9.3); PLATELET COUNT 372 K/mm3 (130-400); REDCELL DISTRIBUTION WIDTH-CV 16.7 % (11.5-14.5)
[2020-02-18 11:55] LABS: ALANINE AMINOTRANSFERASE 16 U/L (4-34); ALBUMIN 4.5 gm/dL (3.5-5.0); ALKALINE PHOSPHATASE 55 U/L (50-136); ANION GAP 10 mmol/L (7-16); AST,SGOT 40 U/L (15-37); BILIRUBIN,TOTAL 1.7 mg/dL (0.0-1.0); BLOOD UREA NITROGEN 6 mg/dL (7-17); CALCIUM 9.2 mg/dL (8.4-10.2); CARBON DIOXIDE 21 mmol/L (22-30); CHLORIDE 105 mmol/L (98-107); CREATININE, serum 0.67 (0.52-1.25); GLUCOSE 74 mg/dL (74-106); LIPASE 120 U/L (23-300); POTASSIUM 4.8 mmol/L (3.4-5.0); SODIUM 136 mmol/L (137-145); TOTAL PROTEIN 7.7 gm/dL (6.4-8.2)
[2020-02-18 11:57] LABS: C-REACTIVE PROTEIN < 0.5 mg/dL (0.0-0.9)
[2020-02-18 12:03] LABS: COLLECTION METHOD CLEAN CATCH
[2020-02-18 12:11] LABS: PH 7 (5-8); SQUAMOUS EPITHELIAL 0-2 /hpf; URINE APPEARANCE Clear; URINE BACTERIA Rare /hpf; URINE BILIRUBIN Negative (NEGATIVE); URINE BLOOD Negative (NEGATIVE); URINE COLOR Straw; URINE GLUCOSE Negative (NEGATIVE); URINE KETONE Trace (NEGATIVE); URINE LEUKOCYTE ESTERASE Negative (NEGATIVE); URINE NITRATE Negative (NEGATIVE); URINE PROTEIN(semi-quant) Negative (NEGATIVE); URINE RBC 0-2 /hpf; URINE UROBILINOGEN Negative (NEGATIVE)
[2020-02-18] MEDS ORDERED: ZOFRAN ODT4 MG PO (15:01)
[2020-02-18 15:07] LABS: TSH w REFLEX 0.478 uIU/mL (0.465-4.680)
[2020-02-18 15:35] VITALS: BP 136/95; PULSE 114
== END 2020-02-18 15:36 | disposition home or self-care (01) ==
LOC: COL.ER 09:51
PROVIDERS: Physician Assistant
DX: R11.10 Vomiting, unspecified (principal); E86.0 Dehydration; F41.9 Anxiety disorder, unspecified; F32.9 Major depressive disorder, single episode, unspecified; F43.10 Post-traumatic stress disorder, unspecified; Z90.49 Acquired absence of other specified parts of digestive tract; Z98.84 Bariatric surgery status; Z90.721 Acquired absence of ovaries, unilateral; Z88.6 Allergy status to analgesic agent; Z88.2 Allergy status to sulfonamides; Z79.84 Long term (current) use of oral hypoglycemic drugs
CPT/HCPCS: J0780; J2060; J2405; J7030; Q9967

== ENCOUNTER 2020-04-09 15:24 | Emergency (ER) | payer MEDICAID ==
[2005-05-23 10:34] VITALS: BP 111/66
[~2020-04-09] VITALS: Ht 167.6 cm; Wt 100.0 kg
[2020-04-09 15:29] VITALS: TEMP 97.2
[2020-04-09 15:59] LABS: COLLECTION METHOD CLEAN CATCH
[2020-04-09 16:01] LABS: BASO % 0.3 % (0.0-2.0); EOS % 0.3 % (0-4.0); GRAN # 3.5 (1.4-6.5); GRAN % 52.2 % (42.2-75.2); LYMPH # 2.6 (1.2-3.4); LYMPH % 39.5 % (20.0-51.0); MEAN CORPUSCULAR HEMOGLOBIN 26 pg (27.0-31.0); MEAN CORPUSCULAR HGB CONC 32 g/dl (33.0-37.0); MEAN PLATELET VOLUME 9.8 fl (7.4-10.4); MONO # 0.5 (0.1-0.6); MONO % 7.5 % (1.7-9.3); PLATELET COUNT 333 K/mm3 (130-400); RED BLOOD COUNT 4.23 M/mm3 (4.10-5.30); REDCELL DISTRIBUTION WIDTH-CV 16.9 % (11.5-14.5)
[2020-04-09 16:10] LABS: HEMATOCRIT 34.8 % (37.0-47.0); MEAN CELL VOLUME 8 fl (80.0-100.0); MUCOUS Present /lpf; PH 5 (5-8); SQUAMOUS EPITHELIAL None Seen /hpf; URINE APPEARANCE Clear; URINE BACTERIA None Seen /hpf; URINE BILIRUBIN Negative (NEGATIVE); URINE BLOOD Negative (NEGATIVE); URINE COLOR Yellow; URINE GLUCOSE Negative (NEGATIVE); URINE KETONE Negative (NEGATIVE); URINE LEUKOCYTE ESTERASE Negative (NEGATIVE); URINE NITRATE Negative (NEGATIVE); URINE PROTEIN(semi-quant) Negative (NEGATIVE); URINE RBC 0-2 /hpf; URINE UROBILINOGEN Negative (NEGATIVE)
[2020-04-09 16:15] LABS: ALANINE AMINOTRANSFERASE 12 U/L (4-34); ALBUMIN 4.1 gm/dL (3.5-5.0); ALKALINE PHOSPHATASE 59 U/L (50-136); ANION GAP 8 mmol/L (7-16); AST,SGOT 22 U/L (15-37); BILIRUBIN,TOTAL 0.5 mg/dL (0.0-1.0); BLOOD UREA NITROGEN 6 mg/dL (7-17); C-REACTIVE PROTEIN < 0.5 mg/dL (0.0-0.9); CALCIUM 8.9 mg/dL (8.4-10.2); CARBON DIOXIDE 28 mmol/L (22-30); CHLORIDE 100 mmol/L (98-107); CREATININE, serum 0.79 (0.52-1.25); GLUCOSE 83 mg/dL (74-106); LIPASE 98 U/L (23-300); POTASSIUM 3.6 mmol/L (3.4-5.0); SODIUM 136 mmol/L (137-145); TOTAL PROTEIN 7.3 gm/dL (6.4-8.2)
[2020-04-09 18:25] VITALS: BP 114/75; PULSE 78
== END 2020-04-09 18:25 | disposition home or self-care (01) ==
LOC: COL.ER 15:24
PROVIDERS: Nurse Practitioner
DX: R10.30 Lower abdominal pain, unspecified (principal); Z88.2 Allergy status to sulfonamides; Z88.6 Allergy status to analgesic agent
CPT/HCPCS: J1170; J1885; J2405; J7030

== ENCOUNTER → 2020-04-18 | Outpatient (CLI) | payer MEDICAID | LOC: COL.RAD 08:00 | DX: R10.31 Right lower quadrant pain (principal) ==

== ENCOUNTER 2020-07-12 10:40 | Emergency (ER) | payer MEDICAID ==
[2005-05-23 10:34] VITALS: BP 111/66
[~2020-07-12] VITALS: Ht 167.6 cm; Wt 92.7 kg
[2020-07-12 10:48] VITALS: TEMP 98.6
[2020-07-12] MEDS ORDERED: LAMICTAL 100MG100 MG PO (11:07)
[2020-07-12 11:25] LABS: BASO % 0.3 % (0.0-2.0); EOS # 0.1 (0.0-0.7); GRAN # 2.8 (1.4-6.5); GRAN % 47.8 % (42.2-75.2); HEMATOCRIT 37.6 % (37.0-47.0); HEMOGLOBIN 11.8 g/dl (12.5-16.0); LYMPH # 2.4 (1.2-3.4); LYMPH % 41.7 % (20.0-51.0); MEAN CELL VOLUME 86 fl (80.0-100.0); MEAN CORPUSCULAR HEMOGLOBIN 27 pg (27.0-31.0); MEAN CORPUSCULAR HGB CONC 31 g/dl (33.0-37.0); MEAN PLATELET VOLUME 9.6 fl (7.4-10.4); MONO # 0.5 (0.1-0.6); PLATELET COUNT 328 K/mm3 (130-400); RED BLOOD COUNT 4.39 M/mm3 (4.10-5.30); REDCELL DISTRIBUTION WIDTH-CV 17.4 % (11.5-14.5)
[2020-07-12 11:31] LABS: PARTIAL THROMBOPLASTIN TIME 29.8 SECONDS (26.0-37.0)
[2020-07-12 11:32] LABS: ALANINE AMINOTRANSFERASE 15 U/L (4-34); ALKALINE PHOSPHATASE 61 U/L (50-136); ANION GAP 8 mmol/L (7-16); AST,SGOT 40 U/L (15-37); BILIRUBIN,TOTAL 0.5 mg/dL (0.0-1.0); BLOOD UREA NITROGEN 10 mg/dL (7-17); CALCIUM 8.8 mg/dL (8.4-10.2); CARBON DIOXIDE 29 mmol/L (22-30); CHLORIDE 101 mmol/L (98-107); CREATININE, serum 0.75 (0.52-1.25); GLUCOSE 74 mg/dL (74-106); POTASSIUM 3.5 mmol/L (3.4-5.0); SODIUM 138 mmol/L (137-145); TOTAL PROTEIN 7.4 gm/dL (6.4-8.2)
[2020-07-12 11:34] LABS: D-DIMER < 200.00 ng/mLDDu (200-230)
[2020-07-12 11:44] LABS: TROPONIN-I < 0.012 ng/mL (0.000-0.035)
[2020-07-12] MEDS ORDERED: FLEXERIL 1010 MG/TAB PO (14:02)
[2020-07-12 14:24] VITALS: BP 103/67; PULSE 85
[2021-01-31] MEDS ORDERED: ADIPEX-P37.5 MG PO (20:25)
== END 2020-07-12 14:30 | disposition home or self-care (01) ==
LOC: COL.ER 10:40
PROVIDERS: Family Medicine
DX: R07.89 Other chest pain (principal); R10.30 Lower abdominal pain, unspecified; Z88.2 Allergy status to sulfonamides; Z88.6 Allergy status to analgesic agent
CPT/HCPCS: J2405; J3010

== ENCOUNTER 2020-10-31 11:31 | Emergency (ER) | payer MEDICAID ==
[~2020-10-31] VITALS: Ht 167.6 cm; Wt 90.9 kg
[2020-10-31 11:42] VITALS: TEMP 97.9
[2020-10-31 12:10] LABS: BASO % 0.4 % (0.0-2.0); EOS # 0.1 (0.0-0.7); EOS % 1.2 % (0-4.0); GRAN # 2.1 (1.4-6.5); GRAN % 43.9 % (42.2-75.2); HEMATOCRIT 37.8 % (37.0-47.0); HEMOGLOBIN 12.1 g/dl (12.5-16.0); LYMPH # 2.3 (1.2-3.4); LYMPH % 47.3 % (20.0-51.0); MEAN CELL VOLUME 85 fl (80.0-100.0); MEAN CORPUSCULAR HEMOGLOBIN 27 pg (27.0-31.0); MEAN CORPUSCULAR HGB CONC 32 g/dl (33.0-37.0); MEAN PLATELET VOLUME 9.8 fl (7.4-10.4); MONO # 0.3 (0.1-0.6); PLATELET COUNT 312 K/mm3 (130-400); RED BLOOD COUNT 4.47 M/mm3 (4.10-5.30); REDCELL DISTRIBUTION WIDTH-CV 15.7 % (11.5-14.5)
[2020-10-31 12:26] LABS: ALANINE AMINOTRANSFERASE 13 U/L (4-34); ALBUMIN 3.9 gm/dL (3.5-5.0); ALKALINE PHOSPHATASE 57 U/L (50-136); ANION GAP 4 mmol/L (7-16); AST,SGOT 23 U/L (15-37); BILIRUBIN,TOTAL 0.5 mg/dL (0.0-1.0); BLOOD UREA NITROGEN 7 mg/dL (7-17); CALCIUM 8.9 mg/dL (8.4-10.2); CARBON DIOXIDE 28 mmol/L (22-30); CHLORIDE 107 mmol/L (98-107); CREATININE, serum 0.78 (0.52-1.25); GLUCOSE 88 mg/dL (74-106); POTASSIUM 4.1 mmol/L (3.4-5.0); SODIUM 138 mmol/L (137-145); TOTAL PROTEIN 7.4 gm/dL (6.4-8.2)
[2020-10-31 12:28] LABS: C-REACTIVE PROTEIN < 0.5 mg/dL (0.0-0.9)
[2020-10-31] MEDS ORDERED: PROVENTIL0.09 MG/A1 IH (12:40)
[2020-10-31] MEDS ORDERED: ZOFRAN ODT4 MG PO (12:40)
[2020-10-31 13:30] VITALS: BP 114/79; PULSE 72
[2021-01-31] MEDS ORDERED: ADIPEX-P37.5 MG PO (20:25)
== END 2020-10-31 13:30 | disposition home or self-care (01) ==
LOC: COL.ER 11:31
PROVIDERS: Emergency Medicine
DX: U07.1 COVID-19 (principal); E86.0 Dehydration; J45.909 Unspecified asthma, uncomplicated; Z87.891 Personal history of nicotine dependence
CPT/HCPCS: J7120

== ENCOUNTER 2020-11-07 12:40 | Emergency (ER) | payer MEDICAID ==
[~2020-11-07] VITALS: Ht 167.6 cm; Wt 90.0 kg
[~2020-11-07 12:40] MED LIST changes: +PROVENTIL0.09 MG/A1 IH
[2020-11-07 13:02] VITALS: TEMP 98.1
[2020-11-07 15:40] LABS: COLLECTION METHOD CLEAN CATCH
[2020-11-07 15:49] LABS: BASO % 0.6 % (0.0-2.0); EOS % 0.5 % (0-4.0); GRAN % 47.3 % (42.2-75.2); HEMOGLOBIN 11.3 g/dl (12.5-16.0); LYMPH # 2.7 (1.2-3.4); LYMPH % 42.9 % (20.0-51.0); MEAN CELL VOLUME 85 fl (80.0-100.0); MEAN CORPUSCULAR HEMOGLOBIN 27 pg (27.0-31.0); MEAN CORPUSCULAR HGB CONC 32 g/dl (33.0-37.0); MEAN PLATELET VOLUME 10.7 fl (7.4-10.4); MONO # 0.5 (0.1-0.6); MONO % 8.5 % (1.7-9.3); PLATELET COUNT 277 K/mm3 (130-400); RED BLOOD COUNT 4.19 M/mm3 (4.10-5.30); REDCELL DISTRIBUTION WIDTH-CV 15.3 % (11.5-14.5)
[2020-11-07 16:02] LABS: ALBUMIN 3.9 gm/dL (3.5-5.0); BILIRUBIN,TOTAL 0.7 mg/dL (0.0-1.0); CALCIUM 8.7 mg/dL (8.4-10.2); CREATININE, serum 0.67 (0.52-1.25); POTASSIUM 3.5 mmol/L (3.4-5.0); TOTAL PROTEIN 7.1 gm/dL (6.4-8.2)
[2020-11-07 16:20] LABS: HEMATOCRIT 35.5 % (37.0-47.0)
[2020-11-07 16:47] LABS: AMORPHOUS CRYSTAL Present /uL; MUCOUS Present /lpf; PH 7 (5-8); SQUAMOUS EPITHELIAL 0-2 /hpf; URINE APPEARANCE Cloudy; URINE BACTERIA Occasional /hpf; URINE BILIRUBIN Negative (NEGATIVE); URINE BLOOD Negative (NEGATIVE); URINE COLOR Yellow; URINE GLUCOSE Negative (NEGATIVE); URINE KETONE Negative (NEGATIVE); URINE LEUKOCYTE ESTERASE Negative (NEGATIVE); URINE NITRATE Positive (NEGATIVE); URINE PROTEIN(semi-quant) Negative (NEGATIVE); URINE RBC 0-2 /hpf
[2020-11-07] MEDS ORDERED: FLEXERIL 1010 MG/TAB PO (17:34)
[2020-11-07 17:42] VITALS: BP 103/87; PULSE 85
[2021-01-31] MEDS ORDERED: ADIPEX-P37.5 MG PO (20:25)
== END 2020-11-07 17:42 | disposition home or self-care (01) ==
LOC: COL.ER 12:40
PROVIDERS: Physician Assistant
DX: U07.1 COVID-19 (principal); E86.0 Dehydration; J45.909 Unspecified asthma, uncomplicated; E66.01 Morbid (severe) obesity due to excess calories; F41.9 Anxiety disorder, unspecified; F32.9 Major depressive disorder, single episode, unspecified; Z79.899 Other long term (current) drug therapy; Z68.32 Body mass index [BMI] 32.0-32.9, adult; Z98.84 Bariatric surgery status
CPT/HCPCS: J7030

== ENCOUNTER → 2020-12-22 | Outpatient (CLI) | payer MEDICAID | LOC: COL.RAD 10:56 | DX: N83.202 Unspecified ovarian cyst, left side (principal); R11.2 Nausea with vomiting, unspecified; Z90.49 Acquired absence of other specified parts of digestive tract | CPT/HCPCS: Q9967 ==

== ENCOUNTER 2021-01-13 13:11 | Emergency (ER) | payer MEDICAID ==
[~2021-01-13] VITALS: Ht 167.6 cm; Wt 88.2 kg
[2021-01-13 13:13] VITALS: BP 130/85; TEMP 98.5
[2021-01-13] MEDS ORDERED: FLEXERIL 1010 MG/TAB PO (13:43)
[2021-01-13] MEDS ORDERED: NORCO 325 MG-51 TAB PO (13:43)
[2021-01-13 13:57] VITALS: PULSE 90
[2021-01-31] MEDS ORDERED: ADIPEX-P37.5 MG PO (20:25)
== END 2021-01-13 14:01 | disposition home or self-care (01) ==
LOC: COL.ER 13:11
DX: L65.8 Other specified nonscarring hair loss (principal); R45.851 Suicidal ideations; Z88.1 Allergy status to other antibiotic agents; Y04.8XXA Assault by other bodily force, initial encounter; Y92.59 Other trade areas as the place of occurrence of the external cause

== ENCOUNTER 2021-02-01 01:43 | Emergency (ER) | payer MEDICAID ==
[~2021-02-01] VITALS: Ht 167.6 cm; Wt 86.4 kg
[2021-02-01 02:07] VITALS: TEMP 97.5
[2021-02-01 02:41] LABS: BASO % 0.5 % (0.0-2.0); EOS # 0.1 K/mm3 (0.0-0.7); EOS % 0.9 % (0-4.0); GRAN # 2.2 K/mm3 (1.4-6.5); HEMOGLOBIN 11.5 g/dl (12.5-16.0); LYMPH # 3.6 K/mm3 (1.2-3.4); LYMPH % 55.2 % (20.0-51.0); MEAN CELL VOLUME 83 fl (80.0-100.0); MEAN CORPUSCULAR HEMOGLOBIN 27 pg (27.0-31.0); MEAN CORPUSCULAR HGB CONC 33 g/dl (33.0-37.0); MEAN PLATELET VOLUME 9.9 fl (7.4-10.4); MONO # 0.6 K/mm3 (0.1-0.6); MONO % 9.2 % (1.7-9.3); PLATELET COUNT 287 K/mm3 (130-400); RED BLOOD COUNT 4.28 M/mm3 (4.10-5.30)
[2021-02-01 02:42] LABS: HEMATOCRIT 35.3 % (37.0-47.0)
[2021-02-01 06:54] VITALS: BP 104/75; PULSE 75
== END 2021-02-01 06:50 | disposition home or self-care (01) ==
LOC: COL.ER 01:43
PROVIDERS: Nurse Practitioner
DX: R10.31 Right lower quadrant pain (principal); R10.32 Left lower quadrant pain; J45.909 Unspecified asthma, uncomplicated; Z90.49 Acquired absence of other specified parts of digestive tract; Z98.84 Bariatric surgery status; Z79.899 Other long term (current) drug therapy
CPT/HCPCS: J1790; J2270; Q9967

== ENCOUNTER 2021-06-01 11:19 | Emergency (ER) | payer MEDICAID ==
[~2021-06-01] VITALS: Ht 167.6 cm; Wt 84.1 kg
[2021-06-01 11:50] VITALS: BP 126/85; TEMP 97.9
[2021-06-01] MEDS ORDERED: VYVANSE40 MG PO (11:56)
[2021-06-01] MEDS ORDERED: ABILIFY MAINTE400 MG IM (11:57)
[2021-06-01] MEDS ORDERED: PERCOCET 325 MG1 TA2 PO (12:22)
[2021-06-01 12:41] VITALS: PULSE 79
== END 2021-06-01 12:41 | disposition home or self-care (01) ==
LOC: COL.ER 11:19
DX: R05.9 Cough, unspecified (principal)

== ENCOUNTER 2021-06-21 12:28 | Emergency (ER) | payer MEDICAID ==
[~2021-06-21] VITALS: Ht 167.6 cm; Wt 83.2 kg
[~2021-06-21 12:28] MED LIST changes: +ABILIFY MAINTE400 MG IM; +VYVANSE40 MG PO
[2021-06-21 12:38] VITALS: TEMP 97.7
[2021-06-21 13:21] LABS: COLLECTION METHOD CLEAN CATCH
[2021-06-21 13:27] LABS: MUCOUS Present (NOT PRESENT); PH 5 (5-8); SQUAMOUS EPITHELIAL 0-2 /hpf (0-10); URINE APPEARANCE Clear (CLEAR/HAZY); URINE BACTERIA None Seen /hpf (NONE SEEN); URINE BILIRUBIN Negative (NEGATIVE); URINE BLOOD Negative (NEGATIVE); URINE COLOR Yellow (YELLOW); URINE GLUCOSE Negative (NEGATIVE); URINE KETONE Negative (NEGATIVE); URINE LEUKOCYTE ESTERASE Negative (NEGATIVE); URINE NITRATE Negative (NEGATIVE); URINE PROTEIN(semi-quant) Negative (NEGATIVE); URINE RBC 0-2 /hpf (0-2); URINE UROBILINOGEN Negative (NEGATIVE)
[2021-06-21 13:35] LABS: TRICYCLIC ANTIDEPRESS URINE NEGATIVE
[2021-06-21 14:30] VITALS: BP 116/72; PULSE 88
== END 2021-06-21 14:30 | disposition home or self-care (01) ==
LOC: COL.ER 12:28
PROVIDERS: Physician Assistant
DX: R10.31 Right lower quadrant pain (principal); Z98.84 Bariatric surgery status; Z90.49 Acquired absence of other specified parts of digestive tract; Z88.6 Allergy status to analgesic agent; Z32.02 Encounter for pregnancy test, result negative
CPT/HCPCS: J1885

== ENCOUNTER 2021-07-21 18:21 | Emergency (ER) | payer MEDICAID ==
[~2021-07-21] VITALS: Ht 167.6 cm; Wt 79.5 kg
[2021-07-21 18:59] LABS: BASO % 0.2 % (0.0-2.0); EOS % 0.1 % (0.0-4.0); GRAN # 10.8 K/mm3 (1.4-6.5); GRAN % 88.1 % (42.2-75.2); HEMOGLOBIN 11.7 g/dl (12.5-16.0); LYMPH # 0.7 K/mm3 (1.2-3.4); LYMPH % 5.7 % (20.0-51.0); MEAN CELL VOLUME 82 fl (80.0-100.0); MEAN CORPUSCULAR HEMOGLOBIN 27 pg (27-31); MEAN CORPUSCULAR HGB CONC 33 g/dl (33.0-37.0); MEAN PLATELET VOLUME 10.2 fl (7.4-10.4); MONO # 0.7 K/mm3 (0.1-0.6); MONO % 5.5 % (1.7-9.3); PLATELET COUNT 342 K/mm3 (130-400); RED BLOOD COUNT 4.35 M/mm3 (4.10-5.30); REDCELL DISTRIBUTION WIDTH-CV 16.8 % (11.5-14.5)
[2021-07-21 19:10] LABS: HEMATOCRIT 35.6 % (37.0-47.0)
[2021-07-21 19:15] LABS: ALBUMIN 3.7 gm/dL (3.5-5.0); BILIRUBIN,TOTAL 0.8 mg/dL (0.2-1.2); CALCIUM 8.6 mg/dL (8.4-10.2); CREATININE, serum 0.76 mg/dL (0.57-1.11); POTASSIUM 3.4 mmol/L (3.5-4.5)
[2021-07-21 21:24] LABS: COLLECTION METHOD CLEAN CATCH
[2021-07-21 21:33] LABS: MUCOUS Present (NOT PRESENT); PH 7 (5-8); SQUAMOUS EPITHELIAL 0-2 /hpf (0-10); URINE APPEARANCE Hazy (CLEAR/HAZY); URINE BACTERIA Rare /hpf (NONE SEEN); URINE BILIRUBIN Negative (NEGATIVE); URINE BLOOD Negative (NEGATIVE); URINE COLOR Yellow (YELLOW); URINE GLUCOSE Negative (NEGATIVE); URINE KETONE 1+ (NEGATIVE); URINE LEUKOCYTE ESTERASE Negative (NEGATIVE); URINE NITRATE Negative (NEGATIVE); URINE PROTEIN(semi-quant) Negative (NEGATIVE); URINE RBC 0-2 /hpf (0-2); URINE UROBILINOGEN >=4.0 (NEGATIVE)
[2021-07-21] MEDS ORDERED: REGLAN 10MG10 MG/TAB PO (21:53)
[2021-07-21 22:23] VITALS: BP 113/62; PULSE 100; TEMP 98.9
== END 2021-07-21 22:24 | disposition home or self-care (01) ==
LOC: COL.ER 18:21
PROVIDERS: Physician Assistant
DX: A08.4 Viral intestinal infection, unspecified (principal); E16.2 Hypoglycemia, unspecified; Z88.8 Allergy status to other drugs, medicaments and biological substances
CPT/HCPCS: J2405; J2765; J7030

== ENCOUNTER 2021-08-09 14:29 | Emergency (ER) | payer MEDICAID ==
[~2021-08-09] VITALS: Ht 167.6 cm; Wt 79.5 kg
[~2021-08-09 14:29] MED LIST changes: +REGLAN 10MG10 MG/TAB PO
[2021-08-09 14:48] VITALS: BP 128/76; TEMP 97.2
[2021-08-09 16:09] LABS: COLLECTION METHOD CLEAN CATCH
[2021-08-09 16:18] LABS: MUCOUS Present (NOT PRESENT); PH 6 (5-8); SQUAMOUS EPITHELIAL 0-2 /hpf (0-10); URINE APPEARANCE Clear (CLEAR/HAZY); URINE BACTERIA Rare /hpf (NONE SEEN); URINE BILIRUBIN Negative (NEGATIVE); URINE BLOOD Negative (NEGATIVE); URINE COLOR Yellow (YELLOW); URINE GLUCOSE Negative (NEGATIVE); URINE KETONE Negative (NEGATIVE); URINE LEUKOCYTE ESTERASE Negative (NEGATIVE); URINE NITRATE Negative (NEGATIVE); URINE PROTEIN(semi-quant) Negative (NEGATIVE); URINE RBC 0-2 /hpf (0-2); URINE UROBILINOGEN Negative (NEGATIVE)
[2021-08-09 16:44] LABS: ALBUMIN 3.6 gm/dL (3.5-5.0); BILIRUBIN,TOTAL 0.4 mg/dL (0.2-1.2); CALCIUM 8.5 mg/dL (8.4-10.2); CREATININE, serum 0.72 mg/dL (0.57-1.11); POTASSIUM 4.2 mmol/L (3.5-4.5); TOTAL PROTEIN 6.7 gm/dL (6.2-8.1)
[2021-08-09 17:39] LABS: BASO % 0.5 % (0.0-2.0); EOS % 0.6 % (0.0-4.0); GRAN # 2.8 K/mm3 (1.4-6.5); GRAN % 43.1 % (42.2-75.2); HEMATOCRIT 32.9 % (37.0-47.0); HEMOGLOBIN 10.5 g/dl (12.5-16.0); LYMPH % 46.3 % (20.0-51.0); MEAN CELL VOLUME 82 fl (80.0-100.0); MEAN CORPUSCULAR HEMOGLOBIN 26 pg (27-31); MEAN CORPUSCULAR HGB CONC 32 g/dl (33.0-37.0); MEAN PLATELET VOLUME 9.6 fl (7.4-10.4); MONO # 0.6 K/mm3 (0.1-0.6); MONO % 9.5 % (1.7-9.3); PLATELET COUNT 300 K/mm3 (130-400); REDCELL DISTRIBUTION WIDTH-CV 16.4 % (11.5-14.5)
[2021-08-09] MEDS ORDERED: ZOFRAN ODT4 MG PO (17:54)
[2021-08-09 18:06] VITALS: PULSE 75
== END 2021-08-09 18:06 | disposition home or self-care (01) ==
LOC: COL.ER 14:29
PROVIDERS: Family Medicine; Physician Assistant
DX: R11.2 Nausea with vomiting, unspecified (principal); D64.9 Anemia, unspecified; Z88.8 Allergy status to other drugs, medicaments and biological substances
CPT/HCPCS: J2405; J7030

== ENCOUNTER 2021-08-18 18:21 | Emergency (ER) | payer MEDICAID ==
[~2021-08-18] VITALS: Ht 167.6 cm; Wt 81.8 kg
[2021-08-18 18:37] VITALS: TEMP 97.2
[2021-08-18 19:01] LABS: COLLECTION METHOD CLEAN CATCH
[2021-08-18 19:08] LABS: MUCOUS Present (NOT PRESENT); PH 5 (5-8); SQUAMOUS EPITHELIAL 0-2 /hpf (0-10); URINE APPEARANCE Clear (CLEAR/HAZY); URINE BACTERIA None Seen /hpf (NONE SEEN); URINE BILIRUBIN Negative (NEGATIVE); URINE BLOOD Negative (NEGATIVE); URINE COLOR Yellow (YELLOW); URINE GLUCOSE Negative (NEGATIVE); URINE KETONE Trace (NEGATIVE); URINE LEUKOCYTE ESTERASE Negative (NEGATIVE); URINE NITRATE Negative (NEGATIVE); URINE PROTEIN(semi-quant) Negative (NEGATIVE); URINE RBC 0-2 /hpf (0-2); URINE UROBILINOGEN Negative (NEGATIVE)
[2021-08-18 19:20] LABS: BASO % 0.3 % (0.0-2.0); EOS # 0.1 K/mm3 (0.0-0.7); EOS % 0.7 % (0.0-4.0); GRAN # 3.2 K/mm3 (1.4-6.5); GRAN % 46.1 % (42.2-75.2); HEMOGLOBIN 11.6 g/dl (12.5-16.0); LYMPH # 3.1 K/mm3 (1.2-3.4); LYMPH % 44.1 % (20.0-51.0); MEAN CELL VOLUME 81 fl (80.0-100.0); MEAN CORPUSCULAR HEMOGLOBIN 27 pg (27-31); MEAN CORPUSCULAR HGB CONC 33 g/dl (33.0-37.0); MEAN PLATELET VOLUME 10.5 fl (7.4-10.4); MONO # 0.6 K/mm3 (0.1-0.6); MONO % 8.7 % (1.7-9.3); PLATELET COUNT 372 K/mm3 (130-400); RED BLOOD COUNT 4.33 M/mm3 (4.10-5.30); REDCELL DISTRIBUTION WIDTH-CV 16.9 % (11.5-14.5)
[2021-08-18 20:15] LABS: ALBUMIN 3.4 gm/dL (3.5-5.0); BILIRUBIN,TOTAL 0.8 mg/dL (0.2-1.2); CALCIUM 8.1 mg/dL (8.4-10.2); CREATININE, serum 0.81 mg/dL (0.57-1.11); POTASSIUM 3.7 mmol/L (3.5-4.5); TOTAL PROTEIN 6.2 gm/dL (6.2-8.1)
[2021-08-18 20:54] VITALS: BP 105/62; PULSE 86
[2021-08-18] MEDS ORDERED: DULCOLAX STOOL100 MG PO (21:02)
== END 2021-08-18 21:13 | disposition home or self-care (01) ==
LOC: COL.ER 18:21
PROVIDERS: Emergency Medicine; Nurse Practitioner Primary Care
DX: K59.00 Constipation, unspecified (principal); N20.0 Calculus of kidney; Z90.49 Acquired absence of other specified parts of digestive tract
CPT/HCPCS: J0780; J1200; J1885; J2405; J7030; Q9967

== ENCOUNTER 2021-10-02 14:53 | Observation (INO) | payer MEDICAID ==
[~2021-10-02] VITALS: Ht 167.6 cm; Wt 90.7 kg
[~2021-10-02 14:53] MED LIST changes: +DULCOLAX STOOL100 MG PO; +FLOMAX 0.40.4 MG/CAP PO
[2021-10-02 15:07] VITALS: BP 123/68; PULSE 87; TEMP 97.9
[2021-10-02 20:34] VITALS: BP 97/54; PULSE 84; TEMP 97.7
[2021-10-03 00:15] VITALS: BP 88/53; PULSE 83; TEMP 97.8
[2021-10-03 04:05] VITALS: BP 98/59; PULSE 81; TEMP 97.5
[2021-10-03 07:44] VITALS: BP 92/50; PULSE 78; TEMP 97.8
[2021-10-03 11:40] VITALS: BP 106/94; PULSE 77; TEMP 97.8
== END 2021-10-03 14:15 | disposition home or self-care (01) ==
LOC: SURG 14:53
PROVIDERS: ADMIT Urology
DX: N30.00 Acute cystitis without hematuria (principal); M54.50 Low back pain, unspecified; R10.12 Left upper quadrant pain; Z87.442 Personal history of urinary calculi
CPT/HCPCS: G0378; J1885; J2270; J2405; J7030

== ENCOUNTER 2021-12-22 16:32 | Emergency (ER) | payer BC, MEDICAID ==
[~2021-12-22] VITALS: Ht 167.6 cm; Wt 79.5 kg
[2021-12-22 16:38] VITALS: TEMP 98.1
[2021-12-22 17:13] LABS: COLLECTION METHOD CLEAN CATCH
[2021-12-22 17:19] LABS: URINE APPEARANCE Clear (CLEAR/HAZY); URINE COLOR Yellow (YELLOW)
[2021-12-22 17:20] LABS: URINE BLOOD Negative (NEGATIVE); URINE GLUCOSE Negative (NEGATIVE); URINE KETONE TRACE (NEGATIVE); URINE NITRATE Negative (NEGATIVE); URINE PROTEIN(semi-quant) Negative (NEGATIVE); URINE UROBILINOGEN 0.2 E.U/dL (0.2-1.0)
[2021-12-22 17:23] LABS: MUCOUS Present (NOT PRESENT); SQUAMOUS EPITHELIAL 0-2 /hpf (0-10); URINE BACTERIA None Seen /hpf (NONE SEEN); URINE CALCIUM OXALATE CRYSTAL Present (NOT PRESENT); URINE RBC 0-2 /hpf (0-2)
[2021-12-22 17:32] LABS: BASO % 0.5 % (0.0-2.0); EOS # 0.1 K/mm3 (0.0-0.7); EOS % 1.8 % (0.0-4.0); GRAN # 2.6 K/mm3 (1.4-6.5); GRAN % 40.3 % (42.2-75.2); HEMOGLOBIN 10.3 g/dl (12.5-16.0); LYMPH # 3.2 K/mm3 (1.2-3.4); LYMPH % 48.9 % (20.0-51.0); MEAN CELL VOLUME 82 fl (80.0-100.0); MEAN CORPUSCULAR HEMOGLOBIN 27 pg (27-31); MEAN CORPUSCULAR HGB CONC 33 g/dl (33.0-37.0); MEAN PLATELET VOLUME 9.7 fl (7.4-10.4); MONO # 0.5 K/mm3 (0.1-0.6); MONO % 8.3 % (1.7-9.3); PLATELET COUNT 341 K/mm3 (130-400); RED BLOOD COUNT 3.81 M/mm3 (4.10-5.30); REDCELL DISTRIBUTION WIDTH-CV 17.1 % (11.5-14.5)
[2021-12-22 17:33] LABS: HEMATOCRIT 31.1 % (37.0-47.0)
[2021-12-22 17:52] LABS: ALBUMIN 3.3 gm/dL (3.5-5.0); BILIRUBIN,TOTAL 0.3 mg/dL (0.2-1.2); CALCIUM 8.7 mg/dL (8.4-10.2); CREATININE, serum 0.81 mg/dL (0.57-1.11); POTASSIUM 3.6 mmol/L (3.5-4.5); TOTAL PROTEIN 6.1 gm/dL (6.2-8.1)
[2021-12-22 18:28] VITALS: BP 102/57; PULSE 68
== END 2021-12-22 18:32 | disposition home or self-care (01) ==
LOC: COL.ER 16:32
PROVIDERS: Emergency Medicine
DX: R10.9 Unspecified abdominal pain (principal); K64.4 Residual hemorrhoidal skin tags; Z98.84 Bariatric surgery status; Z90.49 Acquired absence of other specified parts of digestive tract; Z32.02 Encounter for pregnancy test, result negative
CPT/HCPCS: J2270; J7030

== ENCOUNTER → 2023-02-13 | Outpatient (CLI) | payer MEDICAID ==
[~2023-02-13] MED LIST changes: +ADDERALL15 MG PO; +PROTONIX 40MG T40 MG PO; +VITAMIN B12 781 TAB PO; +VITAMIN D31000 IU PO
== END ==
LOC: COL.RAD 13:00
DX: R11.2 Nausea with vomiting, unspecified (principal); Z98.890 Other specified postprocedural states

== ENCOUNTER 2023-07-26 19:18 | Emergency (ER) | payer MEDICAID ==
[~2023-07-26] VITALS: Ht 167.6 cm; Wt 79.5 kg
[2023-07-26 19:29] VITALS: TEMP 98
[2023-07-26] MEDS ORDERED: Morphine 10 MG/ML VIAL IM ONE (20:00)
[2023-07-26 22:08] VITALS: BP 110/77; PULSE 86
== END 2023-07-26 22:10 | disposition home or self-care (01) ==
LOC: COL.ER 19:18
DX: S20.212A Contusion of left front wall of thorax, initial encounter (principal); S00.03XA Contusion of scalp, initial encounter; M54.2 Cervicalgia; W22.8XXA Striking against or struck by other objects, initial encounter; X50.1XXA Overexertion from prolonged static or awkward postures, initial encounter; Y92.480 Sidewalk as the place of occurrence of the external cause
CPT/HCPCS: J2270

== ENCOUNTER → 2023-08-14 | Outpatient (CLI) | payer MEDICAID ==
[~2023-08-14] MED LIST changes: +Gadoterate 20 ML VIAL IV ONE
== END ==
LOC: COL.RAD 09:54
DX: R56.9 Unspecified convulsions (principal)
CPT/HCPCS: A9575

== ENCOUNTER 2023-10-17 16:35 | Emergency (ER) | payer MEDICAID ==
[~2023-10-17] VITALS: Ht 167.6 cm; Wt 79.5 kg
[~2023-10-17 16:35] MED LIST changes: -Gadoterate 20 ML VIAL IV ONE
[2023-10-17 16:43] VITALS: TEMP 98.3
[2023-10-17] MEDS ORDERED: NS 1,000 ML IV ONE (17:00)
[2023-10-17] MEDS ORDERED: droPERidol 2.5 MG/ML 2 ML VIAL IV ONE (17:00)
[2023-10-17 17:06] LABS: COLLECTION METHOD CLEAN CATCH
[2023-10-17 17:14] LABS: PH 5.5 (5.0-8.5); URINE APPEARANCE CLEAR (CLEAR/HAZY); URINE BLOOD NEGATIVE (NEGATIVE); URINE COLOR YELLOW (YELLOW); URINE GLUCOSE NEGATIVE (NEGATIVE); URINE KETONE NEGATIVE (NEGATIVE); URINE NITRATE NEGATIVE (NEGATIVE); URINE PROTEIN(semi-quant) NEGATIVE (NEGATIVE)
[2023-10-17 17:29] LABS: BASO % 0.5 % (0.0-2.0); EOS # 0.1 K/mm3 (0.0-0.7); GRAN # 2.7 K/mm3 (1.4-6.5); GRAN % 46.8 % (42.2-75.2); HEMATOCRIT 37.8 % (37.0-47.0); HEMOGLOBIN 12.3 g/dl (12.5-16.0); LYMPH # 2.6 K/mm3 (1.2-3.4); LYMPH % 44.4 % (20.0-51.0); MEAN CELL VOLUME 87 fl (80.0-100.0); MEAN CORPUSCULAR HEMOGLOBIN 28 pg (27-31); MEAN CORPUSCULAR HGB CONC 33 g/dl (33.0-37.0); MEAN PLATELET VOLUME 9.8 fl (7.4-10.4); MONO # 0.4 K/mm3 (0.1-0.6); MONO % 7.1 % (1.7-9.3); PLATELET COUNT 284 K/mm3 (130-400); RED BLOOD COUNT 4.34 M/mm3 (4.10-5.30); REDCELL DISTRIBUTION WIDTH-CV 14.8 % (11.5-14.5)
[2023-10-17 17:45] VITALS: BP 97/76; PULSE 88
[2023-10-17] MEDS ORDERED: Ondansetron 4 MG/2 ML VIAL IV ONE (17:45)
[2023-10-17] MEDS ORDERED: CEPHALEXIN500 M1 PO (17:46)
[2023-10-17 17:51] LABS: ALBUMIN 3.5 g/dL (3.5-5.0); BILIRUBIN,TOTAL 0.4 mg/dL (0.2-1.2); CALCIUM 9.4 mg/dL (8.4-10.2); CREATININE, serum 0.81 mg/dL (0.57-1.11); POTASSIUM 3.9 mEq/L (3.5-4.5); TOTAL PROTEIN 6.8 g/dl (6.2-8.1)
== END 2023-10-17 17:50 | disposition left against medical advice (07) ==
LOC: COL.ER 16:35
PROVIDERS: Physician Assistant
DX: N39.0 Urinary tract infection, site not specified (principal); Z88.2 Allergy status to sulfonamides
CPT/HCPCS: J1790; J2405; J7030

== ENCOUNTER 2023-10-25 12:28 | Emergency (ER) | payer MEDICAID ==
[~2023-10-25] VITALS: Ht 167.6 cm; Wt 84.1 kg
[2023-10-25 12:42] VITALS: TEMP 98.5
[2023-10-25] MEDS ORDERED: Ondansetron 4 MG/2 ML VIAL IV ONE (13:45)
[2023-10-25] MEDS ORDERED: LR 1,000 ML IV ONE (13:45)
[2023-10-25 13:59] LABS: BASO % 0.3 % (0.0-2.0); EOS % 0.7 % (0.0-4.0); GRAN # 2.8 K/mm3 (1.4-6.5); GRAN % 47.4 % (42.2-75.2); HEMOGLOBIN 11.8 g/dl (12.5-16.0); LYMPH # 2.5 K/mm3 (1.2-3.4); LYMPH % 42.8 % (20.0-51.0); MEAN CELL VOLUME 87 fl (80.0-100.0); MEAN CORPUSCULAR HEMOGLOBIN 28 pg (27-31); MEAN CORPUSCULAR HGB CONC 32 g/dl (33.0-37.0); MEAN PLATELET VOLUME 9.7 fl (7.4-10.4); MONO # 0.5 K/mm3 (0.1-0.6); MONO % 8.6 % (1.7-9.3); PLATELET COUNT 322 K/mm3 (130-400); REDCELL DISTRIBUTION WIDTH-CV 15.7 % (11.5-14.5)
[2023-10-25 14:01] LABS: HEMATOCRIT 36.5 % (37.0-47.0)
[2023-10-25] MEDS ORDERED: Morphine 4 MG/ML VIAL IV ONE (14:15)
[2023-10-25 14:16] LABS: ALBUMIN 3.6 g/dL (3.5-5.0); BILIRUBIN,TOTAL 0.9 mg/dL (0.2-1.2); C-REACTIVE PROTEIN 0.14 mg/dL (0.00-0.50); CALCIUM 9.1 mg/dL (8.4-10.2); CREATININE, serum 0.79 mg/dL (0.57-1.11); POTASSIUM 3.7 mEq/L (3.5-4.5); TOTAL PROTEIN 6.8 g/dl (6.2-8.1)
[2023-10-25] MEDS ORDERED: Iohexol 300 - 100 ML VIAL IV ONE (14:32)
[2023-10-25] MEDS ORDERED: NS 100 ML IV ONE (14:34)
[2023-10-25 14:59] LABS: COLLECTION METHOD CLEAN CATCH
[2023-10-25 15:09] LABS: PH 7.5 (5.0-8.5); URINE APPEARANCE TURBID (CLEAR/HAZY); URINE BLOOD NEGATIVE (NEGATIVE); URINE COLOR YELLOW (YELLOW); URINE GLUCOSE NEGATIVE (NEGATIVE); URINE KETONE NEGATIVE (NEGATIVE); URINE NITRATE NEGATIVE (NEGATIVE); URINE PROTEIN(semi-quant) NEGATIVE (NEGATIVE)
[2023-10-25] MEDS ORDERED: ATARAX 25MG25 MG/TAB PO (15:44)
[2023-10-25] MEDS ORDERED: hydrOXYzine HCl 25 MG TAB PO ONE (15:45)
[2023-10-25 17:04] VITALS: BP 116/77; PULSE 98
== END 2023-10-25 17:04 | disposition home or self-care (01) ==
LOC: COL.ER 12:28
PROVIDERS: Family Medicine
DX: R10.12 Left upper quadrant pain (principal); R20.2 Paresthesia of skin; Z88.2 Allergy status to sulfonamides
CPT/HCPCS: J2270; J2405; J7120; Q9967

== ENCOUNTER 2023-12-01 13:32 | Emergency (ER) | payer MEDICAID ==
[~2023-12-01] VITALS: Ht 167.6 cm; Wt 81.8 kg
[2023-12-01 13:43] VITALS: TEMP 98.3
[2023-12-01 14:26] LABS: BASO % 0.5 % (0.0-2.0); EOS % 0.6 % (0.0-4.0); GRAN # 3.1 K/mm3 (1.4-6.5); GRAN % 48.3 % (42.2-75.2); HEMATOCRIT 37.5 % (37.0-47.0); LYMPH # 2.7 K/mm3 (1.2-3.4); LYMPH % 41.7 % (20.0-51.0); MEAN CELL VOLUME 89 fl (80.0-100.0); MEAN CORPUSCULAR HEMOGLOBIN 28 pg (27-31); MEAN CORPUSCULAR HGB CONC 32 g/dl (33.0-37.0); MEAN PLATELET VOLUME 10.1 fl (7.4-10.4); MONO # 0.6 K/mm3 (0.1-0.6); MONO % 8.7 % (1.7-9.3); PLATELET COUNT 286 K/mm3 (130-400); RED BLOOD COUNT 4.22 M/mm3 (4.10-5.30)
[2023-12-01] MEDS ORDERED: Ondansetron 4 MG/2 ML VIAL IV ONE (14:30)
[2023-12-01] MEDS ORDERED: NS 1,000 ML IV ONE (14:45)
[2023-12-01 14:55] LABS: COLLECTION METHOD CLEAN CATCH
[2023-12-01 15:00] LABS: PH 6.5 (5.0-8.5); URINE APPEARANCE CLEAR (CLEAR/HAZY); URINE BLOOD NEGATIVE (NEGATIVE); URINE COLOR YELLOW (YELLOW); URINE GLUCOSE NEGATIVE (NEGATIVE); URINE KETONE NEGATIVE (NEGATIVE); URINE NITRATE NEGATIVE (NEGATIVE); URINE PROTEIN(semi-quant) NEGATIVE (NEGATIVE); URINE UROBILINOGEN 0.2 E.U/dL (0.2-1.0)
[2023-12-01 15:23] LABS: ALBUMIN 3.7 g/dL (3.5-5.0); BILIRUBIN,TOTAL 0.7 mg/dL (0.2-1.2); CREATININE, serum 0.76 mg/dL (0.57-1.11); POTASSIUM 3.8 mEq/L (3.5-4.5); TOTAL PROTEIN 7.1 g/dl (6.2-8.1)
[2023-12-01 16:18] VITALS: BP 126/83; PULSE 77
== END 2023-12-01 16:18 | disposition home or self-care (01) ==
LOC: COL.ER 13:32
PROVIDERS: Emergency Medicine
DX: K62.5 Hemorrhage of anus and rectum (principal); R11.2 Nausea with vomiting, unspecified; Z87.891 Personal history of nicotine dependence
CPT/HCPCS: J2405; J7030

== ENCOUNTER 2023-12-09 21:54 | Emergency (ER) | payer MEDICAID ==
[~2023-12-09] VITALS: Ht 167.6 cm; Wt 81.8 kg
[2023-12-09 22:07] VITALS: TEMP 99.3
[2023-12-09] MEDS ORDERED: diphenhydrAMINE 50 MG/ML 1 ML VIAL IV ONE (23:45)
[2023-12-09] MEDS ORDERED: NS 1,000 ML IV ONE (23:45)
[2023-12-09] MEDS ORDERED: Ketorolac 15 MG/ML VIAL IV ONE (23:45)
[2023-12-10] MEDS ORDERED: AMOXICILLIN 50500 MG PO (00:56)
[2023-12-10] MEDS ORDERED: Amoxicillin 500 MG CAP PO ONE (01:00)
[2023-12-10 01:17] VITALS: BP 106/71; PULSE 104
== END 2023-12-10 01:15 | disposition home or self-care (01) ==
LOC: COL.ER 21:54
DX: J02.0 Streptococcal pharyngitis (principal); Z88.2 Allergy status to sulfonamides
CPT/HCPCS: J1200; J1885; J2765; J7030

== ENCOUNTER 2023-12-24 10:21 | Emergency (ER) | payer MEDICAID ==
[~2023-12-24] VITALS: Ht 167.6 cm; Wt 84.1 kg
[2023-12-24 11:48] LABS: MONOSCREEN NEGATIVE
[2023-12-24] MEDS ORDERED: dexAMETHasone 10 MG/ML VIAL IM ONE (12:30)
[2023-12-24] MEDS ORDERED: AMOXICILLIN 8751 TAB PO (12:42)
[2023-12-24] MEDS ORDERED: PREDNISONE20 MG PO (12:42)
[2023-12-24 13:11] VITALS: BP 114/77; PULSE 83; TEMP 97.8
== END 2023-12-24 13:12 | disposition home or self-care (01) ==
LOC: COL.ER 10:21
PROVIDERS: Physician Assistant
DX: J03.90 Acute tonsillitis, unspecified (principal); K11.20 Sialoadenitis, unspecified
CPT/HCPCS: J1100

== ENCOUNTER 2024-01-24 12:44 | Emergency (ER) | payer MEDICAID ==
[~2024-01-24] VITALS: Ht 167.6 cm; Wt 86.4 kg
[~2024-01-24 12:44] MED LIST changes: +AMOXICILLIN 8751 TAB PO; +PREDNISONE20 MG PO
[2024-01-24 12:54] VITALS: TEMP 97.7
[2024-01-24] MEDS ORDERED: Meclizine 25 MG TAB PO ONE (15:30)
[2024-01-24] MEDS ORDERED: NS 1,000 ML IV ONE (15:30)
[2024-01-24 15:51] LABS: BASO % 0.2 % (0.0-2.0); EOS % 0.7 % (0.0-4.0); GRAN # 2.4 K/mm3 (1.4-6.5); HEMOGLOBIN 11.4 g/dl (12.5-16.0); LYMPH # 2.6 K/mm3 (1.2-3.4); MEAN CELL VOLUME 87 fl (80.0-100.0); MEAN CORPUSCULAR HEMOGLOBIN 29 pg (27-31); MEAN CORPUSCULAR HGB CONC 33 g/dl (33.0-37.0); MEAN PLATELET VOLUME 9.8 fl (7.4-10.4); MONO # 0.5 K/mm3 (0.1-0.6); MONO % 8.9 % (1.7-9.3); PLATELET COUNT 272 K/mm3 (130-400); RED BLOOD COUNT 3.96 M/mm3 (4.10-5.30); REDCELL DISTRIBUTION WIDTH-CV 15.8 % (11.5-14.5)
[2024-01-24 15:54] LABS: HEMATOCRIT 34.5 % (37.0-47.0)
[2024-01-24 16:17] LABS: ALBUMIN 3.1 g/dL (3.5-5.0); BILIRUBIN,TOTAL 0.4 mg/dL (0.2-1.2); CALCIUM 8.8 mg/dL (8.4-10.2); CREATININE, serum 0.8 mg/dL (0.57-1.11); POTASSIUM 3.6 mEq/L (3.5-4.5); TOTAL PROTEIN 6.1 g/dl (6.2-8.1)
[2024-01-24] MEDS ORDERED: Acetaminophen 500 MG TAB PO ONE (17:15)
[2024-01-24 18:22] LABS: TRICYCLIC ANTIDEPRESS URINE NEGATIVE (NEGATIVE)
[2024-01-24 19:06] VITALS: BP 116/86; PULSE 64
== END 2024-01-24 19:10 | disposition home or self-care (01) ==
LOC: COL.ER 12:44
PROVIDERS: Physician Assistant
DX: D64.9 Anemia, unspecified (principal); R41.82 Altered mental status, unspecified; R51.9 Headache, unspecified; F11.90 Opioid use, unspecified, uncomplicated
CPT/HCPCS: J7030